=== PATIENT | female | born 1945 | race Caucasian/White ===

== ENCOUNTER → 2016-06-24 | Outpatient (CLI) | payer MEDICARE, BC ==
--- NOTE | 2016-06-24 15:05 | CR ---
EXAMINATION: Two-view chest (PA and Lateral views). HISTORY: Cough. FINDINGS: The trachea is midline. The cardiomediastinal silhouette is within normal limits. No pulmonary infil trates, effusions or pneumothorax. There is a right-sided portacatheter noted with tip in good posit ion. There is mild hyperinflation. Osseous structures appear unremarkable. IMPRESSION: No acute cardiopulmonary process.
== END | disposition home or self-care (01) ==
LOC: MW.CHFP 14:12
PROVIDERS: ATTEND Physician Assistant
DX: R05 Cough (principal); J32.0 Chronic maxillary sinusitis
CPT/HCPCS: 36415; 71020; 85025; G0463

== ENCOUNTER → 2016-07-02 | Outpatient (CLI) | payer MEDICARE, BC | LOC: MW.CHFP 08:00 | CPT/HCPCS: G0463 ==

== ENCOUNTER → 2016-07-20 | Outpatient (CLI) | payer MEDICARE, BC ==
[2016-07-20 09:37] LABS: CHLORIDE,CL 102 mmol/L (98-110); SODIUM,NA 139 mmol/L (136-146)
--- NOTE | 2016-07-20 09:46 | CR ---
EXAMINATION: Two-view chest (PA and Lateral views). HISTORY: Lobar pneumonia. FINDINGS: The trachea is midline. The cardiomediastinal silhouette is within normal limits. No pulmonary infil trates, effusions or pneumothorax. There is a right-sided portacatheter. Trace left basilar atelecta sis. Osseous structures appear unremarkable. IMPRESSION: No acute cardiopulmonary process.
== END ==
LOC: MW.CHFP 08:41
PROVIDERS: ATTEND Emergency Medicine
DX: J18.1 Lobar pneumonia, unspecified organism (principal); E87.6 Hypokalemia; E11.9 Type 2 diabetes mellitus without complications; B00.9 Herpesviral infection, unspecified; Z87.01 Personal history of pneumonia (recurrent)
CPT/HCPCS: 36415; 71020; 71020-26; 80048; 83036; G0463

== ENCOUNTER 2017-03-14 10:22 | Inpatient (IN) | payer MEDICARE, BC ==
[2017-03-14] MEDS ORDERED: Sodium Chloride 0.9% 1,000 ML IV ONE (10:41)
[2017-03-14] MEDS ORDERED: Ketorolac 30 MG/ML SDV IVPUSH ONE (10:43)
--- NOTE | 2017-03-14 11:00 | CR ---
EXAMINATION: Two-view chest (PA and Lateral views). HISTORY: Shortness of breath. FINDINGS: The trachea is midline. The cardiomediastinal silhouette is within normal limits. No pulmonary infilt rates, effusions or pneumothorax. Bibasilar atelectasis. Definite focal consolidation. No pleural eff usion. There is a right-sided portacatheter with tip in good position. Osseous structures appear unremarkable. IMPRESSION: Bibasilar atelectasis without an acute cardiopulmonary finding.
[2017-03-14] MEDS ORDERED: Albuterol 0.083% 2.5 MG/3 ML Neb Soln NEB ONE (12:06)
--- NOTE | 2017-03-14 12:42 | EDM.PDOC ---
ED HPI GENERAL MEDICAL PROBLEM - General Chief Complaint: Respiratory Problem Stated Complaint: SOB Time Seen by Provider: 03/14/17 12:37 Source of Information: Reports: Patient History Limitations: Reports: No Limitations - History of Present Illness INITIAL COMMENTS - FREE TEXT/NARRATIVE: History of present illness: [71-year-old female presents with complaints of shortness of breath. Patient indicates that she was diagnosed with a pneumonia was taking antibiotics but her symptoms are getting worse and she feels quite unwell at this time.] Review of systems: As per history of present illness and below otherwise all systems reviewed and negative. Past medical history: As per history of present illness and as reviewed below otherwise noncontributory. Surgical history: As per history of present illness and as reviewed below otherwise noncontributory. Social history: No reported history of drug or alcohol abuse. Family history: As per history of present illness and as reviewed below otherwise noncontributory. Physical exam: HEENT: Atraumatic, normocephalic, pupils reactive, negative for conjunctival pallor or scleral icterus, mucous membranes moist, throat clear, neck supple, nontender, trachea midline. Lungs: Dim throughout breathing primarily from the apices with a shallow nonproductive cough otherwise equal bilaterally, chest nontender. Heart: S1S2, regular, negative for clicks, rubs, or JVD. Abdomen: Soft, nondistended, nontender. Negative for masses or hepatosplenomegaly. Negative for costovertebral tenderness. Pelvis: Stable nontender. Genitourinary: Deferred. Rectal: Deferred. Extremities: Atraumatic, negative for cords or calf pain. Neurovascular unremarkable. Neuro: Awake, alert, oriented. Cranial nerves II through XII unremarkable. Cerebellum unremarkable. Motor and sensory unremarkable throughout. Exam nonfocal. Spoke to the hospitalist Dr. Sutton he will be down to the ED at the bedside to evaluate patient for inpatient admission Diagnostics: [CBC, CMP, amylase, lipase, chest x-ray] Therapeutics: [IV] Impression: [Pneumonia] Plan: [Admit] Definitive disposition and diagnosis as appropriate pending reevaluation and review of above. Left Middle Back Pain Score (Numeric/FACES): 7 - Related Data Allergies Allergy/AdvReac Type Severity Reaction Status Date / Time Sulfa (Sulfonamide Allergy Rash Verified 03/14/17 10:34 Antibiotics) Home Meds: Home Meds Anastrozole [Arimidex] 1 mg PO DAILY 03/14/17 [History] Budesonide/Formoterol Fumarate [Symbicort 160-4.5 Mcg Inhaler] 2 puff INH BID [History] Colesevelam HCl [Welchol] 1,250 mg PO BID 03/14/17 [History] Fluticasone Furoate [Flonase Sensimist] 1 spray NASBOTH DAILY 03/14/17 [History] Levofloxacin 750 mg PO DAILY 03/14/17 [History] Losartan/Hydrochlorothiazide [Losartan-HCTZ 100-25 MG] 1 tab PO DAILY 03/14/17 [ History] Metoprolol Succinate [Toprol XL] 100 mg PO DAILY 03/14/17 [History] amLODIPine [Norvasc] 2.5 mg PO DAILY 03/14/17 [History] metFORMIN [Glucophage] 500 mg PO DAILY 03/14/17 [History] valACYclovir [Valtrex] 1,000 mg PO ASDIRECTED 03/14/17 [History] Past Medical History Cardiovascular History: Reports: Hypertension Respiratory History: Reports: Other (See Below) Other Respiratory History: pneumonia Oncologic (Cancer) History: Reports: Breast - Infectious Disease History Infectious Disease History: Reports: Chicken Pox, Measles, Mumps - Past Surgical History Oncologic Surgical History: Reports: Mastectomy Social & Family History - Family History Family Medical History: Noncontributory - Tobacco Use Smoking Status *Q: Never Smoker - Recreational Drug Use Recreational Drug Use: No ED ROS GENERAL - Review of Systems Review Of Systems: See Below (History of present illness:) ED EXAM, GENERAL - Physical Exam Exam: See Below (History of present illness:) Course - Vital Signs Last Recorded V/S: Last Vital Signs Temp 36.2 C 03/14/17 10:31 Pulse 117 H 03/14/17 10:31 Resp 22 H 03/14/17 10:31 BP 143/75 H 03/14/17 10:31 Pulse Ox 94 L 03/14/17 10:31 - Orders/Labs/Meds Orders: Active Orders 24 hr Category Date Time Status RT Aerosol Therapy [RC] ASDIRECTED Care 03/14/17 12:06 Active Labs: Laboratory Tests 03/14/17 03/14/17 Range/Units 11:06 11:06 WBC 15.63 H (4.0-11.0) K/uL RBC 4.10 L (4.30-5.90) M/uL Hgb 12.2 (12.0-16.0) g/dL Hct 35.7 L (36.0-46.0) % MCV 87.1 (80.0-98.0) fL MCH 29.8 (27.0-32.0) pg MCHC 34.2 (31.0-37.0) g/dL RDW Std Deviation 42.4 (28.0-62.0) fl RDW Coeff of Johnathan 13 (11.0-15.0) % Plt Count 202 (150-400) K/uL MPV 10.90 (7.40-12.00) fL Neut % (Auto) 77.1 (48.0-80.0) % Lymph % (Auto) 11.0 L (16.0-40.0) % Grainger % (Auto) 11.5 (0.0-15.0) % Eos % (Auto) 0.3 (0.0-7.0) % Baso % (Auto) 0.1 (0.0-1.5) % Neut # (Auto) 12.1 H (1.4-5.7) K/uL Lymph # (Auto) 1.7 (0.6-2.4) K/uL Grainger # (Auto) 1.8 H (0.0-0.8) K/uL Eos # (Auto) 0.0 (0.0-0.7) K/uL Baso # (Auto) 0.0 (0.0-0.1) K/uL Nucleated RBC % 0.0 /100WBC Nucleated RBCs # 0 K/uL Sodium 133 L (136-146) mmol/L Potassium 3.4 L (3.5-5.1) mmol/L Chloride 95 L (98-110) mmol/L Carbon Dioxide 21 (21-31) mmol/L BUN 23 (6.0-23.0) mg/dL Creatinine 1.0 (0.6-1.5) mg/dL Est Cr Clr Drug Dosing 50.54 mL/min Estimated GFR (MDRD) 54.3 ml/min Glucose 147 H (60-110) mg/dL Calcium 9.8 (8.8-10.8) mg/dL Total Bilirubin 0.9 (0.1-1.5) mg/dL AST 21 (5-40) IU/L ALT 21 (8-54) IU/L Alkaline Phosphatase 75 (40-150) Total Protein 7.5 (6.0-8.0) g/dL Albumin 3.7 (3.4-4.8) g/dL Globulin 3.8 H (2.0-3.5) g/dL Albumin/Globulin Ratio 1.0 L (1.3-2.8) Amylase 25 (10-90) U/L Lipase 9 (7-80) U/L Meds: Medications Discontinued Medications Generic Name Dose Route Start Last Admin Trade Name Freq PRN Reason Stop Dose Admin Albuterol 2.5 mg 03/14/17 12:06 03/14/17 12:13 Proventil Neb Soln NEB 03/14/17 12:07 2.5 mg ONETIME ONE Administration Sodium Chloride 1,000 mls @ 999 mls/hr 03/14/17 10:41 03/14/17 11:10 Normal Saline IV 03/14/17 11:41 999 mls/hr STAT ONE Administration Ketorolac Tromethamine 30 mg 03/14/17 10:43 03/14/17 11:10 Toradol IVPUSH 03/14/17 10:44 30 mg ONETIME ONE Administration Departure - Departure Time of Disposition: 12:44 Disposition: Admitted As Inpatient 64 Condition: Good Clinical Impression: Pneumonia - Discharge Information Referrals: Terrance Younger MD [Primary Care Provider] - Forms: ED Department Discharge - My Orders Last 24 Hours: My Active Orders 03/14/17 12:06 RT Aerosol Therapy [RC] ASDIRECTED - Assessment/Plan Last 24 Hours: My Active Orders 03/14/17 12:06 RT Aerosol Therapy [RC] ASDIRECTED
[2017-03-14] MEDS ORDERED: Albuterol/Ipratropium 3.0-0.5 MG/3 ML Neb Soln NEB PRN (13:31)
[2017-03-14] MEDS ORDERED: Acetaminophen 325 MG Tab PO PRN (13:31)
[2017-03-14] MEDS ORDERED: Ondansetron 4 MG Tab.DIS PO PRN (13:31)
[2017-03-14] MEDS ORDERED: traMADol 50 MG Tab PO PRN (13:40)
--- NOTE | 2017-03-14 13:48 | PCM.HP ---
H&P History of Present Illness - General Date of Service: 03/14/17 Admit Problem/Dx: Admission Diagnosis/Problem Admission Diagnosis/Problem Pneumonia Source of Information: Patient History Limitations: Reports: No Limitations - History of Present Illness Initial Comments - Free Text/Narative: 71-year-old female that is being admitted with worsening dyspnea despite outpatient antibiotics. Patient was seen in the clinic on Tuesday and had a chest x-ray done which showed a mild right lower lobe infiltrate and atelectasis. Patient was placed on Levaquin and Symbicort. Patient does have a history of tobacco use but don't diagnosis of COPD. The Levaquin was used to treat both the pneumonia and a possible COPD exacerbation. Patient notes she has been compliant with the medication but has noted worsening dyspnea and shortness of breath since being seen on Tuesday. She presented to the emergency room secondary to these worsening symptoms. She also notes pain in her mid back with deep inspiration. This is a new symptom. Patient does not use inhalers at home. She has used albuterol in the past but notes that it makes her "jittery". Patient denies any chest pain, sinus congestion, sore throat, abdominal pain, nausea, vomiting, constipation, diarrhea, peripheral edema, fever. She does have a chronic cough and she states that this is not any worse than it normally is. Patient does not have a cardiac history. ER course: White blood cell count is elevated at 15.6. Her white blood cell count on Tuesday was 13,000. She was given a DuoNeb treatment and a shot of Toradol for her mid back pain. CMP is unremarkable. Chest x-ray shows a very mild bilateral basilar infiltrate. Oxygen saturation was 96% on 2 L nasal cannula. Left Middle Back Pain Score (Numeric/FACES): 7 - Related Data Allergies/Adverse Reactions: Allergies Allergy/AdvReac Type Severity Reaction Status Date / Time Sulfa (Sulfonamide Allergy Rash Verified 03/14/17 10:34 Antibiotics) Home Medications: Home Meds Anastrozole [Arimidex] 1 mg PO DAILY 03/14/17 [History] Budesonide/Formoterol Fumarate [Symbicort 160-4.5 Mcg Inhaler] 2 puff INH BID [History] Colesevelam HCl [Welchol] 1,250 mg PO BID 03/14/17 [History] Fluticasone Furoate [Flonase Sensimist] 1 spray NASBOTH DAILY 03/14/17 [History] Levofloxacin 750 mg PO DAILY 03/14/17 [History] Losartan/Hydrochlorothiazide [Losartan-HCTZ 100-25 MG] 1 tab PO DAILY 03/14/17 [ History] Metoprolol Succinate [Toprol XL] 100 mg PO DAILY 03/14/17 [History] amLODIPine [Norvasc] 2.5 mg PO DAILY 03/14/17 [History] metFORMIN [Glucophage] 500 mg PO DAILY 03/14/17 [History] valACYclovir [Valtrex] 1,000 mg PO ASDIRECTED 03/14/17 [History] Past Medical History Cardiovascular History: Reports: Hypertension Respiratory History: Reports: Other (See Below) Other Respiratory History: pneumonia Oncologic (Cancer) History: Reports: Breast - Infectious Disease History Infectious Disease History: Reports: Chicken Pox, Measles, Mumps - Past Surgical History Oncologic Surgical History: Reports: Mastectomy Social & Family History - Family History Family Medical History: Noncontributory - Tobacco Use Smoking Status *Q: Never Smoker - Recreational Drug Use Recreational Drug Use: No H&P Review of Systems - Review of Systems: Review Of Systems: See Below General: Reports: Fatigue HEENT: Reports: No Symptoms Pulmonary: Reports: Shortness of Breath, Cough Cardiovascular: Reports: No Symptoms Gastrointestinal: Reports: No Symptoms Genitourinary: Reports: No Symptoms Musculoskeletal: Reports: Other (Mid back pain with deep inspiration.) Skin: Reports: No Symptoms Psychiatric: Reports: No Symptoms Neurological: Reports: No Symptoms Hematologic/Lymphatic: Reports: No Symptoms Immunologic: Reports: No Symptoms Exam - Exam Exam: See Below - Vital Signs Vital Signs: Last Vital Signs Temp 97.2 F 03/14/17 10:31 Pulse 99 03/14/17 12:45 Resp 20 03/14/17 12:45 BP 139/60 03/14/17 12:45 Pulse Ox 92 L 03/14/17 12:45 Weight: 198 lb 6.656 oz - Exam Quality Assessment: Supplemental Oxygen (2 L nasal cannula), DVT Prophylaxis ( SCDs, Lovenox) General: Alert, Oriented, Cooperative, Mild Distress HEENT: Conjunctiva Clear, Hearing Intact, Mucosa Moist & [place], Nares Patent, Normal Nasal Septum Neck: Supple, Trachea Midline, 2 Lungs: Clear to Auscultation, Normal Respiratory Effort, Other (Patient has diminished breath sounds diffusely and bilaterally in all lung lemno. No coarse breath sounds appreciated.) Cardiovascular: Regular Rhythm, Tachycardia (Patient was tachycardic at 117 bpm but her rate has now improved to within normal limits.) GI/Abdominal Exam: Normal Bowel Sounds, Soft, Non-Tender, No Organomegaly, No Distention, No Abnormal Bruit, No Mass Back Exam: Normal Inspection, Full Range of Motion. No: CVA Tenderness (L), CVA Tenderness (R) Extremities: Normal Inspection, Normal Range of Motion, Non-Tender, No Pedal Edema, Normal Capillary Refill Peripheral Pulses: 2+: Radial (L), Radial (R), Posterior Tibial (L), Posterior Tibial (R) Skin: Warm, Dry, Intact Neuro Extensive - Mental Status: Alert, Oriented x3, Normal Mood/Affect, Normal Cognition Psychiatric: Alert, Normal Affect, Normal Mood - Patient Data Result Diagrams: 03/14/17 11:06 03/14/17 11:06 *Q Meaningful Use (ADM) - VTE *Q VTE Criteria *Q: - Stroke *Q Stroke Criteria *Q: - AMI *Q AMI Criteria *Q: - Problem List (1) Diabetes SNOMED Code(s): 22251649 ICD Code: E11.9 - TYPE 2 DIABETES MELLITUS WITHOUT COMPLICATIONS Status: Acute Current Visit: Yes (2) COPD (chronic obstructive pulmonary disease) SNOMED Code(s): 62090203 ICD Code: J44.9 - CHRONIC OBSTRUCTIVE PULMONARY DISEASE, UNSPECIFIED Status : Acute Current Visit: Yes (3) Pneumonia SNOMED Code(s): 192490133 ICD Code: J18.9 - PNEUMONIA, UNSPECIFIED ORGANISM Status: Acute Current Visit: Yes Problem List Initiated/Reviewed/Updated: Yes Orders Last 24hrs: Active Orders 24 hr Category Date Time Status Antiembolic Devices [RC] PER UNIT ROUTINE Care 03/14/17 13:35 Ordered Blood Glucose Check, Bedside [RC] TIDMEALS Care 03/14/17 13:39 Ordered Height and Weight [RC] DAILY Care 03/14/17 13:31 Ordered Intake and Output [RC] QSHIFT Care 03/14/17 13:32 Ordered Notify Provider Vital Signs [RC] ASDIRECTED Care 03/14/17 13:32 Ordered Oxygen Therapy [RC] PRN Care 03/14/17 13:32 Ordered Pulse Oximetry [RC] PRN Care 03/14/17 13:32 Ordered RT Aerosol Therapy [RC] ASDIRECTED Care 03/14/17 13:35 Ordered Up With Assistance [RC] ASDIRECTED Care 03/14/17 13:31 Ordered VTE/DVT Education [RC] PER UNIT ROUTINE Care 03/14/17 13:32 Ordered Vital Signs [RC] Q4H Care 03/14/17 13:32 Ordered ADA Diabetic [[place] [employer] Diet] [DIET Diet 03/14/17 Dinner Ordered ] B-TYPE NATRIURETIC PEPTIDE,BNP [CHEM] Routine Lab 03/14/17 13:36 Ordered BASIC METABOLIC PANEL,BMP [CHEM] AM Lab 03/15/17 05:11 Ordered BASIC METABOLIC PANEL,BMP [CHEM] AM Lab 03/16/17 05:11 Ordered BASIC METABOLIC PANEL,BMP [CHEM] AM Lab 03/17/17 05:11 Ordered CBC WITH AUTO DIFF [HEME] AM Lab 03/15/17 05:11 Ordered CBC WITH AUTO DIFF [HEME] AM Lab 03/16/17 05:11 Ordered CBC WITH AUTO DIFF [HEME] AM Lab 03/17/17 05:11 Ordered CULTURE BLOOD [BC] Stat Lab 03/14/17 13:35 Ordered CULTURE BLOOD [BC] Stat Lab 03/14/17 13:35 Ordered CULTURE SPUTUM + SMEAR [RM] Routine Lab 03/14/17 13:37 Uncollected GLYCOSYLATED HEMOGLOBIN,HGBA1C [CHEM] Routine Lab 03/14/17 13:39 Ordered Acetaminophen [Tylenol] Med 03/14/17 13:31 Ordered 650 mg PO Q4H PRN Albuterol/Ipratropium [DuoNeb 3.0-0.5 MG/3 ML] Med 03/14/17 13:31 Ordered 3 ml NEB Q4HRRT PRN Enoxaparin [Lovenox] Med 03/14/17 13:45 Ordered 40 mg SUBCUT DAILY Insulin Regular, Human [NovoLIN R] Med 03/14/17 17:00 Ordered See Protocol SUBCUT QIDACANDBED Levofloxacin/Dextrose 5%-Water [Levaquin in D5W 750 MG/ Med 03/14/17 13:45 Ordered 150 ML] 750 mg Premix Bag 1 bag IV Q24H Ondansetron [Zofran ODT] Med 03/14/17 13:31 Ordered 4 mg PO Q4H PRN methylPREDNISolone Sod Succ [Solu-MEDROL] Med 03/14/17 13:45 Ordered 125 mg IVPUSH Q6H traMADol [Ultram] Med 03/14/17 13:40 Ordered 50 mg PO Q8H PRN Blood Culture x2 Reflex Set [OM.PC] Stat Oth 03/14/17 13:31 Ordered Sequential Compression Device [OM.PC] Per Unit Routine Oth 03/14/17 13:33 Ordered Resuscitation Status Routine Resus Stat 03/14/17 13:31 Ordered Medication Orders Acetaminophen (Tylenol) 650 mg PO Q4H PRN PRN Reason: Pain (Mild 1-3)/fever Albuterol/Ipratropium (Duoneb 3.0-0.5 Mg/3 Ml) 3 ml NEB Q4HRRT PRN PRN Reason: Shortness Of Breath/wheezing Enoxaparin Sodium (Lovenox) 40 mg SUBCUT DAILY ALEXY Levofloxacin/Dextrose 750 mg/ (Premix) 150 mls @ 100 mls/hr IV Q24H ALEXY Insulin Human Regular (Novolin R) 0 unit SUBCUT QIDACANDBED ALEXY PRN Reason: Protocol Methylprednisolone Sodium Succinate (Solu-Medrol) 125 mg IVPUSH Q6H ALEXY Ondansetron HCl (Zofran Odt) 4 mg PO Q4H PRN PRN Reason: nausea, able to take PO Tramadol HCl (Ultram) 50 mg PO Q8H PRN PRN Reason: Pain Assessment/Plan Comment:: 71-year-old female that is being admitted with pneumonia and possible COPD exacerbation. #1. Pneumonia with possible COPD exacerbation: -Patient has been on by mouth Levaquin since Tuesday but has an increasing white count as evidenced on CBC today. Patient will be placed on IV Levaquin 750 mg daily. Daily CBC to trend white count. -Chest x-ray shows mild by basilar infiltrates. After looking at the x-ray, I believe that the patient may also have underlying COPD and that this may be an exacerbation. -Patient will also be placed on Solu-Medrol 125 mg every 6 hours. -DuoNeb treatment as needed. -BNP is pending. If elevated will get an echocardiogram. Patient has no cardiac history. -For patient's mid back pain with deep inspiration, Tylenol is available and if this does not work she can get tramadol 50 mg every 8 hours when necessary. #2. Type 2 diabetes: -NovoLog sliding scale. Accu-Cheks 3 times a day. -Diabetic diet. #3. Hypertension: -Home antihypertensives will be restarted. DVT prophylaxis: SCDs, Lovenox. Disposition: 2 to 4 days pending improvement.
[2017-03-14] MEDS ORDERED: Piperacillin/Tazobactam 3.375 GM in Sodium Chloride 0.9% 50 ML IV SCH (14:00)
[2017-03-14] MEDS: Levofloxacin/Dextrose 5%-Water 750 MG in Premix Bag 1 BAG IV SCH (15:03)
[2017-03-14] MEDS: methylPREDNISolone Sodium Succinate 125 MG/2 ML SDV IVPUSH SCH ×2 (15:07→18:45)
[2017-03-14] MEDS: Enoxaparin 40 MG/0.4 ML Syringe SUBCUT SCH (15:08)
[2017-03-14] MEDS: Insulin Regular, Human 100 Units/ML 10 ML Vial SUBCUT SCH ×2 (16:54→21:10)
[2017-03-14] MEDS: Piperacillin/Tazobactam 3.375 GM in Sodium Chloride 0.9% 50 ML IV SCH (21:05)
[2017-03-14] MEDS ORDERED: Temazepam 15 MG Cap PO PRN (22:44)
[2017-03-15] MEDS: methylPREDNISolone Sodium Succinate 125 MG/2 ML SDV IVPUSH SCH ×3 (01:29→17:35)
[2017-03-15] MEDS: Piperacillin/Tazobactam 3.375 GM in Sodium Chloride 0.9% 50 ML IV SCH ×4 (01:29→19:56)
[2017-03-15 06:07] LABS: CHLORIDE,CL 100 mmol/L (98-110); SODIUM,NA 136 mmol/L (136-146)
[2017-03-15] MEDS: Enoxaparin 40 MG/0.4 ML Syringe SUBCUT SCH (08:27)
[2017-03-15] MEDS: Insulin Regular, Human 100 Units/ML 10 ML Vial SUBCUT SCH ×4 (09:26→21:06)
--- NOTE | 2017-03-15 09:29 | PCM.PN ---
- General Info Date of Service: 03/15/17 Admission Dx/Problem (Free Text): Admission Diagnosis/Problem Admission Diagnosis/Problem Pneumonia/COPD exacerbation Subjective Update: Doing better this morning, back pain is much better, almost gone. Still has dry non-productive cough. No chest pain. SOB has improved. No other complaints. Functional Status: Reports: Pain Controlled, Tolerating Diet, Ambulating, Urinating - Review of Systems General: Reports: No Symptoms. Denies: Fever HEENT: Reports: No Symptoms. Denies: Headaches, Sore Throat Pulmonary: Reports: Shortness of Breath (improving), Cough. Denies: Pleuritic Chest Pain, Sputum, Hemoptysis Cardiovascular: Reports: No Symptoms. Denies: Chest Pain, Palpitations, Edema Gastrointestinal: Reports: No Symptoms. Denies: Abdominal Pain, Nausea, Vomiting Genitourinary: Reports: No Symptoms. Denies: Dysuria, Frequency, Burning Neurological: Reports: No Symptoms - Patient Data Vitals - Most Recent: Last Vital Signs Temp 97.8 F 03/15/17 07:22 Pulse 81 03/15/17 07:22 Resp 16 03/15/17 07:22 BP 134/86 03/15/17 07:22 Pulse Ox 92 L 03/15/17 07:22 Weight - Most Recent: 90 kg I&O - Last 24 Hours: Intake & Output 03/14/17 03/15/17 03/15/17 22:59 06:59 14:59 Intake Total 950 250 Output Total 0 1350 Balance 950 -1100 Lab Results Last 24 Hours: Laboratory Results - last 24 hr 03/14/17 03/14/17 03/15/17 Range/Units 16:22 20:46 04:55 WBC 10.34 (4.0-11.0) K/uL RBC 4.05 L (4.30-5.90) M/uL Hgb 11.9 L (12.0-16.0) g/dL Hct 34.5 L (36.0-46.0) % MCV 85.2 (80.0-98.0) fL MCH 29.4 (27.0-32.0) pg MCHC 34.5 (31.0-37.0) g/dL RDW Std Deviation 39.3 (28.0-62.0) fl RDW Coeff of Johnathan 13 (11.0-15.0) % Plt Count 187 (150-400) K/uL MPV 11.20 (7.40-12.00) fL Neut % (Auto) 90.4 H (48.0-80.0) % Lymph % (Auto) 7.3 L (16.0-40.0) % [place] % (Auto) 2.2 (0.0-15.0) % Eos % (Auto) 0.0 (0.0-7.0) % Baso % (Auto) 0.1 (0.0-1.5) % Neut # (Auto) 9.4 H (1.4-5.7) K/uL Lymph # (Auto) 0.8 (0.6-2.4) K/uL [place] # (Auto) 0.2 (0.0-0.8) K/uL Eos # (Auto) 0.0 (0.0-0.7) K/uL Baso # (Auto) 0.0 (0.0-0.1) K/uL Nucleated RBC % 0.0 /100WBC Nucleated RBCs # 0 K/uL Sodium (136-146) mmol/L Potassium (3.5-5.1) mmol/L Chloride (98-110) mmol/L Carbon Dioxide (21-31) mmol/L BUN (6.0-23.0) mg/dL Creatinine (0.6-1.5) mg/dL Est Cr Clr Drug Dosing mL/min Estimated GFR (MDRD) ml/min Glucose (60-110) mg/dL POC Glucose 149 H 184 H (60-110) mg/dL Calcium (8.8-10.8) mg/dL 03/15/17 03/15/17 03/15/17 Range/Units 04:55 05:57 09:05 WBC (4.0-11.0) K/uL RBC (4.30-5.90) M/uL Hgb (12.0-16.0) g/dL Hct (36.0-46.0) % MCV (80.0-98.0) fL MCH (27.0-32.0) pg MCHC (31.0-37.0) g/dL RDW Std Deviation (28.0-62.0) fl RDW Coeff of Johnathan (11.0-15.0) % Plt Count (150-400) K/uL MPV (7.40-12.00) fL Neut % (Auto) (48.0-80.0) % Lymph % (Auto) (16.0-40.0) % [place] % (Auto) (0.0-15.0) % Eos % (Auto) (0.0-7.0) % Baso % (Auto) (0.0-1.5) % Neut # (Auto) (1.4-5.7) K/uL Lymph # (Auto) (0.6-2.4) K/uL [place] # (Auto) (0.0-0.8) K/uL Eos # (Auto) (0.0-0.7) K/uL Baso # (Auto) (0.0-0.1) K/uL Nucleated RBC % /100WBC Nucleated RBCs # K/uL Sodium 136 (136-146) mmol/L Potassium 3.2 L (3.5-5.1) mmol/L Chloride 100 (98-110) mmol/L Carbon Dioxide 22 (21-31) mmol/L BUN 21 (6.0-23.0) mg/dL Creatinine 0.8 (0.6-1.5) mg/dL Est Cr Clr Drug Dosing 63.18 mL/min Estimated GFR (MDRD) > 60.0 ml/min Glucose 189 H (60-110) mg/dL POC Glucose 185 H 235 H (60-110) mg/dL Calcium 9.5 (8.8-10.8) mg/dL Med Orders - Current: Current Medications Acetaminophen (Tylenol) 650 mg PO Q4H PRN PRN Reason: Pain (Mild 1-3)/fever Albuterol/Ipratropium (Duoneb 3.0-0.5 Mg/3 Ml) 3 ml NEB Q4HRRT PRN PRN Reason: Shortness Of Breath/wheezing Enoxaparin Sodium (Lovenox) 40 mg SUBCUT DAILY [facility] Last Admin: 03/15/17 08:27 Dose: 40 mg Levofloxacin/Dextrose 750 mg/ (Premix) 150 mls @ 100 mls/hr IV Q24H [facility] Last Admin: 03/14/17 15:03 Dose: 100 mls/hr Piperacillin Sod/Tazobactam (Sod 3.375 gm/ Sodium Chloride) 50 mls @ 100 mls/ hr IV Q6H [facility] Last Admin: 03/15/17 08:40 Dose: 100 mls/hr Insulin Human Regular (Novolin R) 0 unit SUBCUT QIDACANDBED [facility] PRN Reason: Protocol Last Admin: 03/14/17 21:10 Dose: 1 unit Methylprednisolone Sodium Succinate (Solu-Medrol) 125 mg IVPUSH Q6H [facility] Last Admin: 03/15/17 08:27 Dose: 125 mg Ondansetron HCl (Zofran Odt) 4 mg PO Q4H PRN PRN Reason: nausea, able to take PO Temazepam (Restoril) 15 mg PO BEDTIME PRN PRN Reason: Insomnia Tramadol HCl (Ultram) 50 mg PO Q8H PRN PRN Reason: Pain Discontinued Medications Albuterol (Proventil Neb Soln) 2.5 mg NEB ONETIME ONE Stop: 03/14/17 12:07 Last Admin: 03/14/17 12:13 Dose: 2.5 mg Sodium Chloride (Normal Saline) 1,000 mls @ 999 mls/hr IV STAT ONE Stop: 03/14/17 11:41 Last Admin: 03/14/17 11:10 Dose: 999 mls/hr Piperacillin Sod/Tazobactam (Sod 3.375 gm/ Sodium Chloride) 50 mls @ 100 mls/ hr IV Q8H [facility] Last Admin: 03/14/17 16:48 Dose: 100 mls/hr Ketorolac Tromethamine (Toradol) 30 mg IVPUSH ONETIME ONE Stop: 03/14/17 10:44 Last Admin: 03/14/17 11:10 Dose: 30 mg - Exam Quality Assessment: Supplemental Oxygen, DVT Prophylaxis General: Alert, Oriented, Cooperative Neck: Supple Lungs: Rhonchi (Bilateral bases). No: Wheezing Cardiovascular: Regular Rate, Regular Rhythm, No Murmurs GI/Abdominal Exam: Normal Bowel Sounds, Soft, Non-Tender Extremities: Normal Inspection, Normal Range of Motion, Non-Tender, No Pedal Edema, Normal Capillary Refill Neurological: No New Focal Deficit Psy/Mental Status: Alert, Normal Affect, Normal Mood - Problem List & Annotations (1) COPD (chronic obstructive pulmonary disease) SNOMED Code(s): 25529290 Code(s): J44.9 - CHRONIC OBSTRUCTIVE PULMONARY DISEASE, UNSPECIFIED Status : Acute Current Visit: Yes Qualifiers: COPD type: COPD with acute exacerbation Qualified Code(s): J44.1 - Chronic obstructive pulmonary disease with (acute) exacerbation (2) Diabetes SNOMED Code(s): 81217647 Code(s): E11.9 - TYPE 2 DIABETES MELLITUS WITHOUT COMPLICATIONS Status: Chronic Current Visit: Yes Qualifiers: Diabetes mellitus type: type 2 Diabetes mellitus complication status: without complication Diabetes mellitus petroleum terminal plant operator insulin use: without petroleum terminal plant operator use Qualified Code(s): E11.9 - Type 2 diabetes mellitus without complications (3) Pneumonia SNOMED Code(s): 329200944 Code(s): J18.9 - PNEUMONIA, UNSPECIFIED ORGANISM Status: Acute Current Visit: Yes Qualifiers: Pneumonia type: due to unspecified organism Laterality: bilateral Lung location: lower lobe of lung Qualified Code(s): J18.9 - Pneumonia, unspecified organism - Problem List Review Problem List Initiated/Reviewed/Updated: Yes - Plan Plan:: 71-year-old female that is being admitted with pneumonia and possible COPD exacerbation. #1. CAP with possible COPD exacerbation: Continue IV Levaquin 750 mg daily and Zosyn. Leukocytosis ipmroved today, 10,000. Symptoms improving as well. Will decrease Solumedrol to Q8hrs and monitor. Duonebs PRN. BNP normal. Would recommended PFT as outpatient to evaluate respiratory status, once acute illness has passed. #2. Type 2 diabetes: Continue SSI and check BS, may increase with Solumedrol. Will monitor #3. Hypertension: Continue home medications DVT prophylaxis: SCDs, Lovenox. Disposition: 1-2 days.
[2017-03-15] MEDS: Levofloxacin/Dextrose 5%-Water 750 MG in Premix Bag 1 BAG IV SCH (12:44)
[2017-03-15] MEDS ORDERED: Potassium Chloride 20 MEQ Tab.ER PO ONE (13:33)
[2017-03-15] MEDS ORDERED: Lidocaine 2% 5 ML SDV INJECT ONE (16:22)
--- NOTE | 2017-03-15 17:49 | PCM.SN ---
- Free Text/Narrative Note: called for IV attempt. pt aware of need for IV, discussed procedure. unable to utilize Left arm due to lymphedema. 2 attempts in ac area with ultrasound. unable to cannulate. discussed trying to utilize pt port which has had heparin instilled for approximately 5 days.
[2017-03-15] MEDS: amLODIPine 2.5 MG Tab PO SCH (21:04)
[2017-03-15] MEDS: Hydrochlorothiazide/Losartan 12.5-50 mg Tab PO SCH (21:04)
[2017-03-15] MEDS: Metoprolol Succinate 100 MG Tab.ER PO SCH (21:05)
[2017-03-16] MEDS: methylPREDNISolone Sodium Succinate 125 MG/2 ML SDV IVPUSH SCH ×3 (01:06→15:41)
[2017-03-16] MEDS: Piperacillin/Tazobactam 3.375 GM in Sodium Chloride 0.9% 50 ML IV SCH ×4 (01:06→20:12)
[2017-03-16 06:24] LABS: CHLORIDE,CL 102 mmol/L (98-110); SODIUM,NA 139 mmol/L (136-146)
[2017-03-16] MEDS: Insulin Regular, Human 100 Units/ML 10 ML Vial SUBCUT SCH ×4 (07:20→21:34)
[2017-03-16] MEDS ORDERED: Sodium Chloride 0.9% 1,000 ML IV ONE (08:57)
[2017-03-16] MEDS: amLODIPine 2.5 MG Tab PO SCH (09:04)
[2017-03-16] MEDS: Hydrochlorothiazide/Losartan 12.5-50 mg Tab PO SCH (09:04)
[2017-03-16] MEDS: Metoprolol Succinate 100 MG Tab.ER PO SCH (09:05)
[2017-03-16] MEDS: Enoxaparin 40 MG/0.4 ML Syringe SUBCUT SCH (09:10)
[2017-03-16] MEDS: Anastrozole 1 MG Tab PO SCH (09:21)
[2017-03-16] MEDS: Benzonatate 100 MG Cap PO SCH ×3 (09:21→21:37)
[2017-03-16] MEDS: Colesevelam 625 MG Tab PO SCH ×2 (09:21→21:37)
[2017-03-16] MEDS: Fluticasone Propionate Nasal Spray 16 GM Bottle NASBOTH SCH (09:22)
--- NOTE | 2017-03-16 11:02 | PCM.PN ---
- General Info Date of Service: 03/16/17 Admission Dx/Problem (Free Text): Admission Diagnosis/Problem Admission Diagnosis/Problem Pneumonia/COPD exacerbation Subjective Update: Patient reports that her breathing is much improved since admission. She still on supplemental oxygen but reports decreased work of breathing. She does report a headache and postnasal drainage. He is currently on Levaquin and Zosyn for pneumonia and COPD exacerbation. She is tolerating oral intake, voiding appropriately and able to ambulate without assistance. Functional Status: Reports: Tolerating Diet, Ambulating, Urinating - Review of Systems General: Reports: No Symptoms HEENT: Reports: Headaches, Post Nasal Drip Pulmonary: Reports: Shortness of Breath (Improving.) Cardiovascular: Reports: No Symptoms Gastrointestinal: Reports: No Symptoms Genitourinary: Reports: No Symptoms Musculoskeletal: Reports: No Symptoms Skin: Reports: No Symptoms Neurological: Reports: No Symptoms Psychiatric: Reports: No Symptoms - Patient Data Vitals - Most Recent: Last Vital Signs Temp 97.9 F 03/16/17 08:00 Pulse 82 03/16/17 09:05 Resp 18 03/16/17 08:00 BP 136/56 L 03/16/17 09:05 Pulse Ox 96 03/16/17 08:00 Weight - Most Recent: 196 lb 10.437 oz I&O - Last 24 Hours: Intake & Output 03/15/17 03/16/17 03/16/17 22:59 06:59 14:59 Intake Total 5088 051 5645 Output Total 300 750 Balance 750 -550 1050 Lab Results Last 24 Hours: Laboratory Results - last 24 hr 03/15/17 03/15/17 03/15/17 Range/Units 11:04 17:27 20:40 WBC (4.0-11.0) K/uL RBC (4.30-5.90) M/uL Hgb (12.0-16.0) g/dL Hct (36.0-46.0) % MCV (80.0-98.0) fL MCH (27.0-32.0) pg MCHC (31.0-37.0) g/dL RDW Std Deviation (28.0-62.0) fl RDW Coeff of Johnathan (11.0-15.0) % Plt Count (150-400) K/uL MPV (7.40-12.00) fL Neut % (Auto) (48.0-80.0) % Lymph % (Auto) (16.0-40.0) % [place] % (Auto) (0.0-15.0) % Eos % (Auto) (0.0-7.0) % Baso % (Auto) (0.0-1.5) % Neut # (Auto) (1.4-5.7) K/uL Lymph # (Auto) (0.6-2.4) K/uL [place] # (Auto) (0.0-0.8) K/uL Eos # (Auto) (0.0-0.7) K/uL Baso # (Auto) (0.0-0.1) K/uL Nucleated RBC % /100WBC Nucleated RBCs # K/uL Sodium (136-146) mmol/L Potassium (3.5-5.1) mmol/L Chloride (98-110) mmol/L Carbon Dioxide (21-31) mmol/L BUN (6.0-23.0) mg/dL Creatinine (0.6-1.5) mg/dL Est Cr Clr Drug Dosing mL/min Estimated GFR (MDRD) ml/min Glucose (60-110) mg/dL POC Glucose 231 H 203 H 229 H (60-110) mg/dL Calcium (8.8-10.8) mg/dL Magnesium (1.5-2.3) mEq/L 03/16/17 03/16/17 03/16/17 Range/Units 05:25 05:25 05:25 WBC 15.23 H (4.0-11.0) K/uL RBC 3.98 L (4.30-5.90) M/uL Hgb 11.7 L (12.0-16.0) g/dL Hct 34.5 L (36.0-46.0) % MCV 86.7 (80.0-98.0) fL MCH 29.4 (27.0-32.0) pg MCHC 33.9 (31.0-37.0) g/dL RDW Std Deviation 41.3 (28.0-62.0) fl RDW Coeff of Johnathan 13 (11.0-15.0) % Plt Count 241 (150-400) K/uL MPV 10.90 (7.40-12.00) fL Neut % (Auto) 91.3 H (48.0-80.0) % Lymph % (Auto) 4.9 L (16.0-40.0) % [place] % (Auto) 3.7 (0.0-15.0) % Eos % (Auto) 0.0 (0.0-7.0) % Baso % (Auto) 0.1 (0.0-1.5) % Neut # (Auto) 13.9 H (1.4-5.7) K/uL Lymph # (Auto) 0.7 (0.6-2.4) K/uL [place] # (Auto) 0.6 (0.0-0.8) K/uL Eos # (Auto) 0.0 (0.0-0.7) K/uL Baso # (Auto) 0.0 (0.0-0.1) K/uL Nucleated RBC % 0.0 /100WBC Nucleated RBCs # 0 K/uL Sodium 139 (136-146) mmol/L Potassium 4.0 (3.5-5.1) mmol/L Chloride 102 (98-110) mmol/L Carbon Dioxide 24 (21-31) mmol/L BUN 27 H (6.0-23.0) mg/dL Creatinine 0.8 (0.6-1.5) mg/dL Est Cr Clr Drug Dosing 63.18 mL/min Estimated GFR (MDRD) > 60.0 ml/min Glucose 218 H (60-110) mg/dL POC Glucose (60-110) mg/dL Calcium 9.3 (8.8-10.8) mg/dL Magnesium 1.7 (1.5-2.3) mEq/L 03/16/17 Range/Units 07:09 WBC (4.0-11.0) K/uL RBC (4.30-5.90) M/uL Hgb (12.0-16.0) g/dL Hct (36.0-46.0) % MCV (80.0-98.0) fL MCH (27.0-32.0) pg MCHC (31.0-37.0) g/dL RDW Std Deviation (28.0-62.0) fl RDW Coeff of Johnathan (11.0-15.0) % Plt Count (150-400) K/uL MPV (7.40-12.00) fL Neut % (Auto) (48.0-80.0) % Lymph % (Auto) (16.0-40.0) % [place] % (Auto) (0.0-15.0) % Eos % (Auto) (0.0-7.0) % Baso % (Auto) (0.0-1.5) % Neut # (Auto) (1.4-5.7) K/uL Lymph # (Auto) (0.6-2.4) K/uL [place] # (Auto) (0.0-0.8) K/uL Eos # (Auto) (0.0-0.7) K/uL Baso # (Auto) (0.0-0.1) K/uL Nucleated RBC % /100WBC Nucleated RBCs # K/uL Sodium (136-146) mmol/L Potassium (3.5-5.1) mmol/L Chloride (98-110) mmol/L Carbon Dioxide (21-31) mmol/L BUN (6.0-23.0) mg/dL Creatinine (0.6-1.5) mg/dL Est Cr Clr Drug Dosing mL/min Estimated GFR (MDRD) ml/min Glucose (60-110) mg/dL POC Glucose 212 H (60-110) mg/dL Calcium (8.8-10.8) mg/dL Magnesium (1.5-2.3) mEq/L Michael Results Last 24 Hours: Microbiology 03/14/17 14:35 Aerobic Blood Culture - Preliminary Blood - Venous - Lab Draw NO GROWTH AFTER 1 DAY Anaerobic Blood Culture - Preliminary NO GROWTH AFTER 1 DAY 03/14/17 14:25 Aerobic Blood Culture - Preliminary Blood - Venous NO GROWTH AFTER 1 DAY Anaerobic Blood Culture - Preliminary NO GROWTH AFTER 1 DAY Med Orders - Current: Current Medications Acetaminophen (Tylenol) 650 mg PO Q4H PRN PRN Reason: Pain (Mild 1-3)/fever Last Admin: 03/16/17 09:21 Dose: 650 mg Albuterol/Ipratropium (Duoneb 3.0-0.5 Mg/3 Ml) 3 ml NEB Q4HRRT PRN PRN Reason: Shortness Of Breath/wheezing Amlodipine Besylate (Norvasc) 2.5 mg PO DAILY [facility] Last Admin: 03/16/17 09:04 Dose: 2.5 mg Anastrozole (Arimidex) 1 mg PO DAILY [facility] Last Admin: 03/16/17 09:21 Dose: 1 mg Benzonatate (Tessalon Perles) 200 mg PO TID [facility] Last Admin: 03/16/17 09:21 Dose: 200 mg Colesevelam HCl (Welchol) 1,250 mg PO BID [facility] Last Admin: 03/16/17 09:21 Dose: 1,250 mg Enoxaparin Sodium (Lovenox) 40 mg SUBCUT DAILY [facility] Last Admin: 03/16/17 09:10 Dose: 40 mg Fluticasone Propionate (Flonase) 1 gm NASBOTH DAILY [facility] Last Admin: 03/16/17 09:22 Dose: 1 spray HCTZ/Losartan Potassium (Hyzaar 50-12.5 Mg) 2 tab PO DAILY [facility] Last Admin: 03/16/17 09:04 Dose: 2 tab Levofloxacin/Dextrose 750 mg/ (Premix) 150 mls @ 100 mls/hr IV Q24H [facility] Last Admin: 03/15/17 12:44 Dose: 100 mls/hr Piperacillin Sod/Tazobactam (Sod 3.375 gm/ Sodium Chloride) 50 mls @ 100 mls/ hr IV Q6H [facility] Last Admin: 03/16/17 09:01 Dose: 100 mls/hr Insulin Human Regular (Novolin R) 0 unit SUBCUT QIDACANDBED [facility] PRN Reason: Protocol Last Admin: 03/16/17 07:20 Dose: 2 unit Metformin HCl (Glucophage Xr) 500 mg PO DAILY@0800 [facility] Methylprednisolone Sodium Succinate (Solu-Medrol) 125 mg IVPUSH Q8H [facility] Last Admin: 03/16/17 09:00 Dose: 125 mg Metoprolol Succinate (Toprol Xl) 100 mg PO DAILY [facility] Last Admin: 03/16/17 09:05 Dose: 100 mg Ondansetron HCl (Zofran Odt) 4 mg PO Q4H PRN PRN Reason: nausea, able to take PO Temazepam (Restoril) 15 mg PO BEDTIME PRN PRN Reason: Insomnia Tramadol HCl (Ultram) 50 mg PO Q8H PRN PRN Reason: Pain Discontinued Medications Albuterol (Proventil Neb Soln) 2.5 mg NEB ONETIME ONE Stop: 03/14/17 12:07 Last Admin: 03/14/17 12:13 Dose: 2.5 mg Sodium Chloride (Normal Saline) 1,000 mls @ 999 mls/hr IV STAT ONE Stop: 03/14/17 11:41 Last Admin: 03/14/17 11:10 Dose: 999 mls/hr Piperacillin Sod/Tazobactam (Sod 3.375 gm/ Sodium Chloride) 50 mls @ 100 mls/ hr IV Q8H [facility] Last Admin: 03/14/17 16:48 Dose: 100 mls/hr Sodium Chloride (Normal Saline) 1,000 mls @ 999 mls/hr IV .Bolus ONE Stop: 03/16/17 09:57 Last Admin: 03/16/17 09:26 Dose: 999 mls/hr Ketorolac Tromethamine (Toradol) 30 mg IVPUSH ONETIME ONE Stop: 03/14/17 10:44 Last Admin: 03/14/17 11:10 Dose: 30 mg Lidocaine (Xylocaine-Mpf 2%) 5 ml INJECT ONETIME ONE Stop: 03/15/17 16:23 Last Admin: 03/15/17 17:34 Dose: Not Given Methylprednisolone Sodium Succinate (Solu-Medrol) 125 mg IVPUSH Q6H [facility] Last Admin: 03/15/17 08:27 Dose: 125 mg Potassium Chloride (Klor-Con M20) 40 meq PO ONETIME ONE Stop: 03/15/17 13:34 Last Admin: 03/15/17 13:50 Dose: 40 meq - Exam Quality Assessment: Supplemental Oxygen (1.5 L via nasal cannula.), DVT Prophylaxis (Lovenox, SCDs.) General: Alert, Oriented, Cooperative, No Acute Distress HEENT: Mucous Membr. Moist/[place] Neck: Supple Lungs: Normal Respiratory Effort, Decreased Breath Sounds (Bilaterally and diffusely in all lung lemon.) Cardiovascular: Regular Rate, Regular Rhythm GI/Abdominal Exam: Normal Bowel Sounds, Soft, Non-Tender, No Organomegaly, No Distention, No Abnormal Bruit, No Mass Extremities: Normal Inspection, Normal Range of Motion, Non-Tender, No Pedal Edema, Normal Capillary Refill Peripheral Pulses: 2+: Radial (L), Radial (R), Posterior Tibial (L), Posterior Tibial (R) Skin: Warm, Dry, Intact Neurological: No New Focal Deficit Psy/Mental Status: Alert, Normal Affect, Normal Mood - Problem List & Annotations (1) Diabetes SNOMED Code(s): 80466680 Code(s): E11.9 - TYPE 2 DIABETES MELLITUS WITHOUT COMPLICATIONS Status: Chronic Current Visit: Yes Qualifiers: Diabetes mellitus type: type 2 Diabetes mellitus complication status: without complication Diabetes mellitus mcc insulin use: without mcc use Qualified Code(s): E11.9 - Type 2 diabetes mellitus without complications (2) COPD (chronic obstructive pulmonary disease) SNOMED Code(s): 35588944 Code(s): J44.9 - CHRONIC OBSTRUCTIVE PULMONARY DISEASE, UNSPECIFIED Status : Acute Current Visit: Yes Qualifiers: COPD type: COPD with acute exacerbation Qualified Code(s): J44.1 - Chronic obstructive pulmonary disease with (acute) exacerbation (3) Pneumonia SNOMED Code(s): 684573583 Code(s): J18.9 - PNEUMONIA, UNSPECIFIED ORGANISM Status: Acute Current Visit: Yes Qualifiers: Pneumonia type: due to unspecified organism Laterality: bilateral Lung location: lower lobe of lung Qualified Code(s): J18.9 - Pneumonia, unspecified organism - Problem List Review Problem List Initiated/Reviewed/Updated: Yes - My Orders Last 24 Hours: My Active Orders 03/16/17 09:00 Anastrozole [Arimidex] 1 mg PO DAILY Benzonatate [Tessalon Perles] 200 mg PO TID Colesevelam [Welchol] 1,250 mg PO BID Fluticasone Propionate [Flonase] 1 gm NASBOTH DAILY 03/17/17 05:11 BASIC METABOLIC PANEL,BMP [CHEM] AM CBC WITH AUTO DIFF [HEME] AM 03/17/17 08:00 metFORMIN [Glucophage XR] 500 mg PO DAILY@0800 - Plan Plan:: 71-year-old female that is being admitted with pneumonia and possible COPD exacerbation. #1. CAP with possible COPD exacerbation: Continue IV Levaquin 750 mg daily and Zosyn. White blood cell count was previously normal but has elevated most likely secondary to Solu-Medrol. Symptoms continuing to improve. Continue Duonebs PRN. recommended PFT as outpatient to evaluate respiratory status, once acute illness has passed. -Tessalon Perles added for cough. -Will try to wean off O2 today. #2. Type 2 diabetes: Continue SSI and check BS, may increase with Solumedrol. Have restarted the patient's metformin. #3. Hypertension: Continue home medications DVT prophylaxis: SCDs, Lovenox. Disposition: 1-2 days.
[2017-03-16] MEDS: Levofloxacin/Dextrose 5%-Water 750 MG in Premix Bag 1 BAG IV SCH (14:00)
[2017-03-17] MEDS: methylPREDNISolone Sodium Succinate 125 MG/2 ML SDV IVPUSH SCH ×2 (00:09→07:49)
[2017-03-17] MEDS: Piperacillin/Tazobactam 3.375 GM in Sodium Chloride 0.9% 50 ML IV SCH ×2 (01:51→07:49)
[2017-03-17] MEDS: Benzonatate 100 MG Cap PO SCH (05:57)
[2017-03-17 07:08] LABS: CHLORIDE,CL 104 mmol/L (98-110); SODIUM,NA 140 mmol/L (136-146)
[2017-03-17] MEDS: Insulin Regular, Human 100 Units/ML 10 ML Vial SUBCUT SCH (07:09)
[2017-03-17] MEDS ORDERED: metFORMIN 500 MG Tab.ER PO SCH (08:00)
[2017-03-17] MEDS: Colesevelam 625 MG Tab PO SCH (08:13)
[2017-03-17] MEDS: Metoprolol Succinate 100 MG Tab.ER PO SCH (08:13)
[2017-03-17] MEDS: Anastrozole 1 MG Tab PO SCH (08:13)
[2017-03-17] MEDS: Enoxaparin 40 MG/0.4 ML Syringe SUBCUT SCH (08:14)
[2017-03-17] MEDS: amLODIPine 2.5 MG Tab PO SCH (08:14)
[2017-03-17] MEDS: Hydrochlorothiazide/Losartan 12.5-50 mg Tab PO SCH (08:14)
[2017-03-17] MEDS: Fluticasone Propionate Nasal Spray 16 GM Bottle NASBOTH SCH (08:14)
--- NOTE | 2017-07-21 13:30 | PCM.DCSUM1 ---
Discharge Summary - Hospital Course Free Text/Narrative:: Admission diagnosis: #1. Community-acquired pneumonia #2. COPD exacerbation #3. Diabetes #4. Hypertension Discharge diagnoses: #1. Community-acquired pneumonia #2. COPD exacerbation, improved #3. Diabetes #4. Hypertension 71-year-old female that was admitted to the hospital with community-acquired pneumonia and a COPD exacerbation. Patient was admitted secondary to failing outpatient therapy with oral Levaquin for suspected community-acquired pneumonia. Upon admission the patient was requiring 2 L nasal cannula to maintain her oxygen saturation greater than 94%. At the time of discharge, the patient was not requiring supplemental oxygen and her respiratory status had improved. Patient was started on IV Levaquin and Zosyn along with IV Solu- Medrol and as needed duo nebs. Again, with these treatments, her respiratory status improved. Patient did have an elevated white blood cell count of 15.6 when admitted which did return to normal with the initiation of IV antibiotics. Her white blood cell count did elevate after Solu-Medrol was initiated. Chest x- ray showed bilateral atelectasis without any acute findings. BNP was unremarkable. At the time of discharge, the patient was tolerating oral intake and voiding appropriately. She was ambulating without assistance. Discharge plan: #1. Prescription given for Tessalon Perles secondary to persistent cough #2. 2 additional days of Levaquin 750 mg daily prescribed. #3. Prescription given for prednisone taper #4. Patient will resume all home medications #5. Patient will follow-up with her PCP as soon as possible following discharge. - Discharge Data Discharge Date: 03/17/17 Discharge Disposition: Home, Self-Care 01 Condition: Good - Discharge Diagnosis/Problem(s) (1) Diabetes SNOMED Code(s): 11950879 ICD Code: E11.9 - TYPE 2 DIABETES MELLITUS WITHOUT COMPLICATIONS Status: Chronic Qualifiers: Diabetes mellitus type: type 2 Diabetes mellitus intermediate insulin use: without terminal gauger use Diabetes mellitus complication status: without complication Qualified Code(s): E11.9 - Type 2 diabetes mellitus without complications (2) COPD (chronic obstructive pulmonary disease) SNOMED Code(s): 61875375 ICD Code: J44.9 - CHRONIC OBSTRUCTIVE PULMONARY DISEASE, UNSPECIFIED Status : Acute Qualifiers: COPD type: COPD with acute exacerbation Qualified Code(s): J44.1 - Chronic obstructive pulmonary disease with (acute) exacerbation (3) Pneumonia SNOMED Code(s): 330858024 ICD Code: J18.9 - PNEUMONIA, UNSPECIFIED ORGANISM Status: Acute Qualifiers: Pneumonia type: due to unspecified organism Laterality: bilateral Lung location: lower lobe of lung Qualified Code(s): J18.9 - Pneumonia, unspecified organism - Patient Instructions Diet: Diabetic Diet Activity: As Tolerated Driving: May Drive Today Showering/Bathing: May Shower Notify Provider of: Fever, Increased Pain, Nausea and/or Vomiting - Discharge Plan Prescriptions/Med Rec: Benzonatate [Tessalon Perles] 200 mg PO TID #30 cap Levofloxacin 750 mg PO DAILY #2 tablet Prednisone [IJD: Prednisone] 10 mg PO DAILY #28 tab Home Medications: Home Meds Anastrozole [Arimidex] 1 mg PO DAILY 03/14/17 [History] Budesonide/Formoterol Fumarate [Symbicort 160-4.5 Mcg Inhaler] 2 puff INH BID [History] Colesevelam HCl [Welchol] 1,250 mg PO BID 03/14/17 [History] Fluticasone Furoate [Flonase Sensimist] 1 spray NASBOTH DAILY 03/14/17 [History] Losartan/Hydrochlorothiazide [Losartan-HCTZ 100-25 MG] 1 tab PO DAILY 03/14/17 [ History] Metoprolol Succinate [Toprol XL] 100 mg PO DAILY 03/14/17 [History] amLODIPine [Norvasc] 2.5 mg PO DAILY 03/14/17 [History] metFORMIN HCl [Metformin HCl ER] 500 mg PO DAILY 03/14/17 [History] valACYclovir [Valtrex] 1,000 mg PO ASDIRECTED PRN 03/14/17 [History] guaiFENesin/Codeine Phosphate [Cheratussin AC Syrup] 10 ml PO Q4H PRN 03/15/17 [ History] Benzonatate [Tessalon Perles] 200 mg PO TID #30 cap 03/17/17 [Rx] Levofloxacin 750 mg PO DAILY #2 tablet 03/17/17 [Rx] Prednisone [IJD: Prednisone] 10 mg PO DAILY #28 tab 03/17/17 [Rx] Patient Handouts: Levofloxacin tablets, Prednisone tablets, Benzonatate capsules, Community-Acquired Pneumonia, Adult, [id number] Referrals: Terrance Younger MD [Primary Care Provider] - 03/22/17 2:45 pm - Discharge Summary/Plan Comment DC Time >30 min.: No Discharge Summary/Plan Comment: Admission diagnosis: #1. Community-acquired pneumonia #2. COPD exacerbation #3. Diabetes #4. Hypertension Discharge diagnoses: #1. Community-acquired pneumonia #2. COPD exacerbation, improved #3. Diabetes #4. Hypertension 71-year-old female that was admitted to the hospital with community-acquired pneumonia and a COPD exacerbation. Patient was admitted secondary to failing outpatient therapy with oral Levaquin for suspected community-acquired pneumonia. Upon admission the patient was requiring 2 L nasal cannula to maintain her oxygen saturation greater than 94%. At the time of discharge, the patient was not requiring supplemental oxygen and her respiratory status had improved. Patient was started on IV Levaquin and Zosyn along with IV Solu- Medrol and as needed duo nebs. Again, with these treatments, her respiratory status improved. Patient did have an elevated white blood cell count of 15.6 when admitted which did return to normal with the initiation of IV antibiotics. Her white blood cell count did elevate after Solu-Medrol was initiated. Chest x- ray showed bilateral atelectasis without any acute findings. BNP was unremarkable. At the time of discharge, the patient was tolerating oral intake and voiding appropriately. She was ambulating without assistance. Discharge plan: #1. Prescription given for Tessalon Perles secondary to persistent cough #2. 2 additional days of Levaquin 750 mg daily prescribed. #3. Prescription given for prednisone taper #4. Patient will resume all home medications #5. Patient will follow-up with her PCP as soon as possible following discharge. - Patient Data Vitals - Most Recent: Last Vital Signs Temp 96.8 F 03/17/17 08:00 Pulse 80 03/17/17 08:13 Resp 20 03/17/17 08:00 BP 156/76 H 03/17/17 08:14 Pulse Ox 94 L 03/17/17 08:00 Weight - Most Recent: 194 lb 0.108 oz Med Orders - Current: Current Medications Discontinued Medications Acetaminophen (Tylenol) 650 mg PO Q4H PRN PRN Reason: Pain (Mild 1-3)/fever Last Admin: 03/16/17 09:21 Dose: 650 mg Albuterol (Proventil Neb Soln) 2.5 mg NEB ONETIME ONE Stop: 03/14/17 12:07 Last Admin: 03/14/17 12:13 Dose: 2.5 mg Albuterol/Ipratropium (Duoneb 3.0-0.5 Mg/3 Ml) 3 ml NEB Q4HRRT PRN PRN Reason: Shortness Of Breath/wheezing Amlodipine Besylate (Norvasc) 2.5 mg PO DAILY [facility] Last Admin: 03/17/17 08:14 Dose: 2.5 mg Anastrozole (Arimidex) 1 mg PO DAILY [facility] Last Admin: 03/17/17 08:13 Dose: 1 mg Benzonatate (Tessalon Perles) 200 mg PO TID [facility] Last Admin: 03/17/17 05:57 Dose: 200 mg Colesevelam HCl (Welchol) 1,250 mg PO BID [facility] Last Admin: 03/17/17 08:13 Dose: 1,250 mg Enoxaparin Sodium (Lovenox) 40 mg SUBCUT DAILY [facility] Last Admin: 03/17/17 08:14 Dose: 40 mg Fluticasone Propionate (Flonase) 1 gm NASBOTH DAILY [facility] Last Admin: 03/17/17 08:14 Dose: 1 spray HCTZ/Losartan Potassium (Hyzaar 50-12.5 Mg) 2 tab PO DAILY [facility] Last Admin: 03/17/17 08:14 Dose: 2 tab Sodium Chloride (Normal Saline) 1,000 mls @ 999 mls/hr IV STAT ONE Stop: 03/14/17 11:41 Last Admin: 03/14/17 11:10 Dose: 999 mls/hr Levofloxacin/Dextrose 750 mg/ (Premix) 150 mls @ 100 mls/hr IV Q24H [facility] Last Admin: 03/16/17 14:00 Dose: 100 mls/hr Piperacillin Sod/Tazobactam (Sod 3.375 gm/ Sodium Chloride) 50 mls @ 100 mls/ hr IV Q8H [facility] Last Admin: 03/14/17 16:48 Dose: 100 mls/hr Piperacillin Sod/Tazobactam (Sod 3.375 gm/ Sodium Chloride) 50 mls @ 100 mls/ hr IV Q6H [facility] Last Admin: 03/17/17 07:49 Dose: 100 mls/hr Sodium Chloride (Normal Saline) 1,000 mls @ 999 mls/hr IV .Bolus ONE Stop: 03/16/17 09:57 Last Admin: 03/16/17 09:26 Dose: 999 mls/hr Insulin Human Regular (Novolin R) 0 unit SUBCUT QIDACANDBED ALEXY PRN Reason: Protocol Last Admin: 03/17/17 07:09 Dose: 2 unit Ketorolac Tromethamine (Toradol) 30 mg IVPUSH ONETIME ONE Stop: 03/14/17 10:44 Last Admin: 03/14/17 11:10 Dose: 30 mg Lidocaine (Xylocaine-Mpf 2%) 5 ml INJECT ONETIME ONE Stop: 03/15/17 16:23 Last Admin: 03/15/17 17:34 Dose: Not Given Metformin HCl (Glucophage Xr) 500 mg PO DAILY@0800 [facility] Last Admin: 03/17/17 07:49 Dose: 500 mg Methylprednisolone Sodium Succinate (Solu-Medrol) 125 mg IVPUSH Q6H [facility] Last Admin: 03/15/17 08:27 Dose: 125 mg Methylprednisolone Sodium Succinate (Solu-Medrol) 125 mg IVPUSH Q8H [facility] Last Admin: 03/17/17 07:49 Dose: 125 mg Metoprolol Succinate (Toprol Xl) 100 mg PO DAILY [facility] Last Admin: 03/17/17 08:13 Dose: 100 mg Ondansetron HCl (Zofran Odt) 4 mg PO Q4H PRN PRN Reason: nausea, able to take PO Potassium Chloride (Klor-Con M20) 40 meq PO ONETIME ONE Stop: 03/15/17 13:34 Last Admin: 03/15/17 13:50 Dose: 40 meq Temazepam (Restoril) 15 mg PO BEDTIME PRN PRN Reason: Insomnia Tramadol HCl (Ultram) 50 mg PO Q8H PRN PRN Reason: Pain *Q Meaningful Use (DIS) - VTE *Q VTE Criteria *Q: - Stroke *Q Stroke Criteria *Q: - AMI *Q AMI Criteria *Q:
== END 2017-03-17 10:50 | disposition home or self-care (01) | DRG 194 ==
LOC: MW.ED 10:22 → MW.MS 13:02
PROVIDERS: ADMIT Family Medicine; ATTEND Family Medicine
DX: J18.9 Pneumonia, unspecified organism (principal); J44.0 Chronic obstructive pulmonary disease with (acute) lower respiratory infection; J44.1 Chronic obstructive pulmonary disease with (acute) exacerbation; I10 Essential (primary) hypertension; E11.9 Type 2 diabetes mellitus without complications; Z88.2 Allergy status to sulfonamides; Z79.899 Other long term (current) drug therapy
CPT/HCPCS: 36415; 71020; 80053; 82150; 83036; 83690; 83880; 85025; 94640; 96361; 96374; 99285; J1885; J7040; 80048; 82962; 83735; 87040; 87046; 87324; 87899; 99283; A9270-GY; J1650; J1815-GY; J1956; J2543; J2930; J7050

== ENCOUNTER 2017-08-23 09:57 | Day surgery (SDC) | payer MEDICARE, BC ==
[~2017-08-23 09:57] MED LIST: Lactated Ringers 1,000 ML IV SCH; Sodium Chloride 0.9% 10 ML Syringe FLUSH PRN; Sodium Chloride 0.9% 2.5 ML Syringe FLUSH PRN
[2017-08-23] MEDS ORDERED: fentaNYL 100 MCG/2 ML SDV ONE (10:33)
[2017-08-23] MEDS ORDERED: Lidocaine 2% 5 ML SDV ONE (10:33)
[2017-08-23] MEDS ORDERED: Propofol 200 MG/20 ML SDV ONE (10:33)
--- NOTE | 2017-08-23 10:52 | PCM.PREANE ---
Preanesthetic Assessment - Anesthesia/Transfusion/Family Hx Anesthesia History: Prior Anesthesia Without Reaction Family History of Anesthesia Reaction: No Transfusion History: No Prior Transfusion(s) - Review of Systems General: No Symptoms Pulmonary: No Symptoms Cardiovascular: No Symptoms Gastrointestinal: No Symptoms Neurological: No Symptoms Other: Reports: None - Physical Assessment NPO Status Date: 08/22/17 Height: 1.75 m Weight: 82.1 kg ASA Class: 2 Mental Status: Alert & Oriented x3 Airway Class: Mallampati = 1 Dentition: Reports: Normal Dentition ROM/Head Extension: Full Lungs: Clear to Auscultation, Normal Respiratory Effort Cardiovascular: Regular Rate, Regular Rhythm - Allergies Allergies/Adverse Reactions: Allergies Allergy/AdvReac Type Severity Reaction Status Date / Time cefaclor [From Ceclor] Allergy Itching Verified 08/19/17 10:16 Sulfa (Sulfonamide Allergy Rash Verified 08/19/17 10:16 Antibiotics) - Anesthesia Plan Pre-Op Medication Ordered: None - Acknowledgements Anesthesia Type Planned: MAC Pt an Appropriate Candidate for the Planned Anesthesia: Yes Alternatives and Risks of Anesthesia Discussed w Pt/Guardian: Yes Pt/Guardian Understands and Agrees with Anesthesia Plan: Yes PreAnesthesia Questionnaire HEENT History: Reports: Cataract, Other (See Below) Other HEENT History: uses reading glasses Cardiovascular History: Reports: High Cholesterol, Hypertension Respiratory History: Reports: Sleep Apnea Other Respiratory History: does not use CPAP since weight loss last year, was told she might have COPD- no testing done, no inhaler Gastrointestinal History: Reports: Colon Polyp, Hemorrhoids [employer] History: Reports: Musculoskeletal History: Reports: Neck Pain, Chronic Neurological History: Reports: Neuropathy, Peripheral Other Neuro History: 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 Endocrine/Metabolic History: Reports: Diabetes, Type II Oncologic (Cancer) History: Reports: Basal Cell Carcinoma, Breast - Infectious Disease History Infectious Disease History: Reports: Chicken Pox, Measles, Mumps - Past Surgical History Head Surgeries/Procedures: Reports: None HEENT Surgical History: Reports: Cataract Surgery Cardiovascular Surgical History: Reports: Other (See Below) Other Cardiovascular Surgeries/Procedures: has port-a-cath GI Surgical History: Reports: Cholecystectomy, Colonoscopy, Other (See Below) Other GI Surgeries/Procedures: hemorrhoidectomy Female Surgical History: Reports: Hysterectomy, Mastectomy, Other (See Below) Other Female Surgeries/Procedures: left Modified Radical Matectomy for cancer , right Simple Mastectomy (preventitive) Neurological Surgical History: Reports: Other (See Below) Other Neurological Surgeries/Procedures: states has herniated disc in lower back Musculoskeletal Surgical History: Reports: Carpal Tunnel, Other (See Below) Other Musculoskeletal Surgeries/Procedures:: hx of right CTR, and right trigger finger release Oncologic Surgical History: Reports: Other (See Below) Other Oncologic Surgeries/Procedures: removal of mole on nose - SUBSTANCE USE Smoking Status *Q: Former Smoker Tobacco Use Within Last Twelve Months: No Second Hand Smoke Exposure: No Recreational Drug Use History: No - HOME MEDS Home Medications: Home Meds Anastrozole [Arimidex] 1 mg PO DAILY 03/14/17 [History] Colesevelam HCl [Welchol] 1,250 mg PO BID 03/14/17 [History] Losartan/Hydrochlorothiazide [Losartan-HCTZ 100-25 MG] 1 tab PO QAM 03/14/17 [ History] Metoprolol Succinate [Toprol XL] 50 mg PO QPM 03/14/17 [History] amLODIPine [Norvasc] 2.5 mg PO DAILY 03/14/17 [History] metFORMIN HCl [Metformin HCl ER] 500 mg PO DAILY 03/14/17 [History] valACYclovir [Valtrex] 1,000 mg PO ASDIRECTED PRN 03/14/17 [History] Aspirin [Adult Low Dose Aspirin EC] 81 mg PO DAILY 08/19/17 [History] Calcium Carbonate/Vitamin D3 [Caltrate 600 Plus D3 Tablet] 1 tab PO DAILY [History] Ipratropium [place] 1 spray NASBOTH Q6H PRN 08/19/17 [History] - CURRENT (IN HOUSE) MEDS Current Meds: Current Medications Lactated Ringer's (Ringers, Lactated) 1,000 mls @ 125 mls/hr IV ASDIRECTED ALEXY Sodium Chloride (Saline Flush) 10 ml FLUSH ASDIRECTED PRN PRN Reason: Keep Vein Open Sodium Chloride (Saline Flush) 2.5 ml FLUSH ASDIRECTED PRN PRN Reason: Keep Vein Open Sodium Chloride (Saline Flush) 10 ml FLUSH ASDIRECTED PRN PRN Reason: Keep Vein Open Sodium Chloride (Saline Flush) 2.5 ml FLUSH ASDIRECTED PRN PRN Reason: Keep Vein Open Discontinued Medications Fentanyl (Sublimaze) Confirm Administered Dose 100 mcg .ROUTE .STK-MED ONE Stop: 08/23/17 10:34 Lidocaine (Xylocaine-Mpf 2%) Confirm Administered Dose 5 ml .ROUTE .STK-MED ONE Stop: 08/23/17 10:34 Propofol (Diprivan 20 Ml) Confirm Administered Dose 400 mg .ROUTE .STK-MED ONE Stop: 08/23/17 10:34
[2017-08-23] MEDS ORDERED: ePHEDrine 50 MG/ML SDV ONE (12:54)
--- NOTE | 2017-08-23 13:03 | PCM.OPNOTE ---
- General Post-Op/Procedure Note Date of Surgery/Procedure: 08/23/17 Operative Procedure(s): Screening colonoscopy Findings: Sigmoid colon polyp, diverticulosis Pre Op Diagnosis: Hisotry of colon polyps Post-Op Diagnosis: Sigmoid colon polyp, diverticulosis Anesthesia Technique: EVANGELISTA Primary Surgeon: Phoebe Grossman Condition: Good
--- NOTE | 2017-08-23 13:23 | PCM.POSTAN ---
POST ANESTHESIA ASSESSMENT - MENTAL STATUS Mental Status: Alert, Oriented - RESPIRATORY Respiratory Status: Respiratory Rate WNL, Airway Patent, O2 Saturation Stable - CARDIOVASCULAR CV Status: Pulse Rate WNL, Blood Pressure Stable - GASTROINTESTINAL GI Status: No Symptoms - PAIN Pain Score: 0 - POST OP HYDRATION Hydration Status: Adequate & Stable
--- NOTE | 2017-08-23 13:49 | PCM48HPAN ---
Post Anesthesia Note - EVALUATION WITHIN 48HRS OF ANESTHETIC Vital Signs in Normal Range: Yes Patient Participated in Evaluation: Yes Respiratory Function Stable: Yes Airway Patent: Yes Cardiovascular Function Stable: Yes Hydration Status Stable: Yes Pain Control Satisfactory: Yes Nausea and Vomiting Control Satisfactory: Yes Mental Status Recovered: Yes Resp Rate: 11
--- NOTE | 2017-08-23 22:09 | OR ---
SURGEON: PARVEZ BARRERA MD DATE OF PROCEDURE: 08/23/2017 PREOPERATIVE DIAGNOSIS: History of colon polyps. POSTOPERATIVE DIAGNOSES: 1. Grade 4 hemorrhoids. 2. Diverticulosis. 3. Sigmoid colon polyp at 60 cm. PROCEDURE PERFORMED: Diagnostic colonoscopy. ANESTHESIA: MAC. INSTRUMENT USED: Olympus colonoscope. EXTENT OF EXAM: To the cecum. PREPARATION: Good. LIMITATIONS: None. INDICATIONS FOR EXAMINATION: The patient is a 71-year-old female with a past medical history of colon polyps. She was supposed to have a repeat colonoscopy in 5 years, however, has not had one for approximately 10 years. The patient and I discussed the need for a repeat colonoscopy. We discussed the procedure, expected perioperative course, and risks including bleeding, infection, or damage to surrounding structures including perforation. The patient verbalized understanding and wishes to proceed. PROCEDURE IN DETAIL: The patient was brought into the endoscopy suite and placed in the left lateral decubitus position. A time-out was completed verifying the patient's name, age, date of , allergies, and procedure to be performed. Monitored anesthesia care was induced and continuous oxygen was provided via nasal cannula throughout the procedure. After adequate sedation was achieved, a digital rectal exam was performed. The patient was found to have grade 4 prolapsed hemorrhoids. A well lubricated colonoscope was then inserted in the rectum and advanced under direct visualization at the level of the cecum. The cecum was identified by both visual and anatomic landmarks. A photograph was taken of the cecal cap as well as with the scope retroflexed within the cecum. The scope was then fully withdrawn while examining the color, texture, anatomy, and integrity of the mucosa from the cecum to the anal canal. The patient was found to have diverticulosis throughout the sigmoid colon. The patient was found to have a pedunculated sigmoid colon polyp at 60 cm. This was removed using a cold snare. The area was hemostatic after removal. The remainder of the colon appeared normal. The scope was then brought into the rectum and retroflexed to allow visualization of the anal canal opening. This appeared normal and a photograph was taken. The scope was then straightened out and fully withdrawn. The cecum to anus time was 9 minutes. The patient tolerated the procedure well and transferred to the PACU in stable condition. ENDOSCOPIC DIAGNOSES: 1. Grade 4 hemorrhoids. 2. Diverticulosis. 3. Sigmoid colon polyp. RECOMMENDATION: Follow up in clinic in 2 weeks. CARLENE / MODL /[id number]
== END 2017-08-23 14:10 | disposition home or self-care (01) ==
LOC: MW.SDS 09:57
PROVIDERS: ATTEND Surgery
DX: Z12.11 Encounter for screening for malignant neoplasm of colon (principal); D12.5 Benign neoplasm of sigmoid colon; K64.3 Fourth degree hemorrhoids; K57.30 Diverticulosis of large intestine without perforation or abscess without bleeding; I10 Essential (primary) hypertension; G47.33 Obstructive sleep apnea (adult) (pediatric); J44.9 Chronic obstructive pulmonary disease, unspecified; E78.00 Pure hypercholesterolemia, unspecified; E11.42 Type 2 diabetes mellitus with diabetic polyneuropathy; Z87.891 Personal history of nicotine dependence; Z86.010 Personal history of colon polyps; Z85.3 Personal history of malignant neoplasm of breast; Z79.811 Long term (current) use of aromatase inhibitors; Z79.82 Long term (current) use of aspirin; Z79.84 Long term (current) use of oral hypoglycemic drugs; Z79.899 Other long term (current) drug therapy; Z88.2 Allergy status to sulfonamides; Z88.1 Allergy status to other antibiotic agents
CPT/HCPCS: 00811; 82962; 88305; J2704; J3010; J7120

== ENCOUNTER 2018-09-07 06:19 | Day surgery (SDC) | payer MEDICARE, BC ==
[~2018-09-07 06:19] MED LIST changes: +Clindamycin Phosphate in D5W 600 MG in Premix Bag 1 BAG IV ONE; +Sodium Chloride 0.9% 10 ML SDV IV PRN
[2018-09-07] MEDS ORDERED: Midazolam 1 MG/ML 2 ML SDV ONE (06:55)
[2018-09-07] MEDS ORDERED: Propofol 200 MG/20 ML SDV ONE (06:55)
[2018-09-07] MEDS ORDERED: fentaNYL 100 MCG/2 ML SDV ONE (06:55)
[2018-09-07] MEDS ORDERED: Clindamycin Phosphate in D5W 50 ML ONE (06:57)
--- NOTE | 2018-09-07 07:11 | PCM.PREANE ---
Preanesthetic Assessment - Anesthesia/Transfusion/Family Hx Anesthesia History: Prior Anesthesia Without Reaction Family History of Anesthesia Reaction: No Transfusion History: No Prior Transfusion(s) Intubation History: Unknown - Review of Systems General: No Symptoms Pulmonary: No Symptoms Cardiovascular: No Symptoms Gastrointestinal: No Symptoms Neurological: No Symptoms Other: Reports: None - Physical Assessment O2 Sat by Pulse Oximetry: 94 Respiratory Rate: 16 Vital Signs: Last Vital Signs Temp 36.4 C 09/07/18 07:00 Pulse 61 09/07/18 07:00 Resp 16 09/07/18 07:00 BP 133/66 09/07/18 07:00 Pulse Ox 94 L 09/07/18 07:00 Height: 1.75 m Weight: 90.265 kg ASA Class: 3 Mental Status: Alert & Oriented x3 Airway Class: Mallampati = 2 Dentition: Reports: Normal Dentition Thyro-Mental Finger Breadths: 3 Mouth Opening Finger Breadths: 3 ROM/Head Extension: Limited/Partial Lungs: Clear to Auscultation, Normal Respiratory Effort Cardiovascular: Regular Rate, Regular Rhythm - Allergies Allergies/Adverse Reactions: Allergies Allergy/AdvReac Type Severity Reaction Status Date / Time cefaclor [From Ceclor] Allergy Itching Verified 09/04/18 08:26 Sulfa (Sulfonamide Allergy Rash Verified 09/04/18 08:26 Antibiotics) - Blood Blood Available: No - Anesthesia Plan Pre-Op Medication Ordered: None - Acknowledgements Anesthesia Type Planned: MAC Pt an Appropriate Candidate for the Planned Anesthesia: Yes Alternatives and Risks of Anesthesia Discussed w Pt/Guardian: Yes Pt/Guardian Understands and Agrees with Anesthesia Plan: Yes PreAnesthesia Questionnaire HEENT History: Reports: Other (See Below) Other HEENT History: uses reading glasses Cardiovascular History: Reports: High Cholesterol, Hypertension, Other (See Below) (left carotid stenosis 70 percent, passed stress test a month ago. 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 cancer work-up) Hematologic History: Reports: None Immunologic History: Reports: None Oncologic (Cancer) History: Reports: Basal Cell Carcinoma, Breast Dermatologic History: Reports: None - Infectious Disease History Infectious Disease History: Reports: Chicken Pox, Measles, Mumps - Past Surgical History Head Surgeries/Procedures: Reports: None HEENT Surgical History: Reports: Cataract Surgery Cardiovascular Surgical History: Reports: Other (See Below) Other Cardiovascular Surgeries/Procedures: has port-a-cath Respiratory Surgical History: Reports: None GI Surgical History: Reports: Cholecystectomy, Colonoscopy, Other (See Below) Other GI Surgeries/Procedures: hemorrhoidectomy Female Surgical History: Reports: Hysterectomy, Mastectomy, Other (See Below) Other Female Surgeries/Procedures: left Modified Radical Matectomy for cancer , right Simple Mastectomy (preventitive) Endocrine Surgical History: Reports: None Neurological Surgical History: Reports: None, Other (See Below) Musculoskeletal Surgical History: Reports: Carpal Tunnel, Other (See Below) Other Musculoskeletal Surgeries/Procedures:: hx of right CTR, and right trigger finger release Oncologic Surgical History: Reports: Mastectomy Other Oncologic Surgeries/Procedures: Bilateral masectomy, modified radical on left side Dermatological Surgical History: Reports: Skin Biopsy - SUBSTANCE USE Smoking Status *Q: Former Smoker Tobacco Use Within Last Twelve Months: No Recreational Drug Use History: No - HOME MEDS Home Medications: Home Meds Anastrozole [Arimidex] 1 mg PO DAILY 03/14/17 [History] Colesevelam HCl [Welchol] 1,250 mg PO BID 03/14/17 [History] Losartan/Hydrochlorothiazide [Losartan-HCTZ 100-25 MG] 1 tab PO QAM 03/14/17 [ History] Metoprolol Succinate [Toprol XL] 100 mg PO BEDTIME 03/14/17 [History] amLODIPine [Norvasc] 5 mg PO BID 03/14/17 [History] metFORMIN HCl [Metformin HCl ER] 500 mg PO DAILY 03/14/17 [History] valACYclovir [Valtrex] 1,000 mg PO ASDIRECTED PRN 03/14/17 [History] Aspirin [Adult Low Dose Aspirin EC] 81 mg PO DAILY 08/19/17 [History] Calcium Carbonate/Vitamin D3 [Caltrate 600 Plus D3 Tablet] 1 tab PO DAILY [History] Ipratropium [place] 1 spray NASBOTH Q6H PRN 08/19/17 [History] Albuterol Sulfate [Proair Hfa] 1 - 2 puff INH ASDIRECTED PRN 09/04/18 [History] - CURRENT (IN HOUSE) MEDS Current Meds: Current Medications Lactated Ringer's (Ringers, Lactated) 1,000 mls @ 125 mls/hr IV ASDIRECTED ALEXY Last Admin: 09/07/18 07:00 Dose: 125 mls/hr Sodium Chloride (Saline Flush) 10 ml FLUSH ASDIRECTED PRN PRN Reason: Keep Vein Open Sodium Chloride (Saline Flush) 2.5 ml FLUSH ASDIRECTED PRN PRN Reason: Keep Vein Open Sodium Chloride (Normal Saline) 10 ml IV ASDIRECTED PRN PRN Reason: IV Use Discontinued Medications Fentanyl (Sublimaze) Confirm Administered Dose 100 mcg .ROUTE .STK-MED ONE Stop: 09/07/18 06:56 Clindamycin Phosphate 600 mg/ (Premix) 50 mls @ 100 mls/hr IV ONETIME ONE Stop: 09/06/18 13:39 Lidocaine HCl (Xylocaine-Mpf 1%) Confirm Administered Dose 5 mls @ as directed .ROUTE .STK-MED ONE Stop: 09/07/18 06:57 Clindamycin Phosphate (Cleocin In D5w) Confirm Administered Dose 50 mls @ as directed .ROUTE .STK-MED ONE Stop: 09/07/18 06:58 Midazolam HCl (Versed 1 Mg/Ml) Confirm Administered Dose 2 mg .ROUTE .STK-MED ONE Stop: 09/07/18 06:56 Propofol (Diprivan 20 Ml) Confirm Administered Dose 200 mg .ROUTE .STK-MED ONE Stop: 09/07/18 06:56
[2018-09-07] MEDS ORDERED: Bupivacaine 0.5% 10 ML SDV ONE (07:14)
[2018-09-07] MEDS ORDERED: Lidocaine 1% 20 ML MDV ONE (07:16)
--- NOTE | 2018-09-07 08:32 | PCM.OPNOTE ---
<Jeremias Linton - Last Filed: 09/07/18 08:28> - General Post-Op/Procedure Note Date of Surgery/Procedure: 09/07/18 Operative Procedure(s): Port-a-cath Removal Pre Op Diagnosis: Port-a-Cath removal Post-Op Diagnosis: Intact Portacath with Clot in tubing removal Primary Surgeon: Phoebe Grossman Secondary Surgeon: Jeremias Linton Pathology: intact port-a-cath with clot in tubing removed Fluid Replacement, Intraop: 500 EBL in mLs: 3 Complications: None Condition: Good <Phoebe Grossman - Last Filed: 09/07/18 08:34> - General Post-Op/Procedure Note Findings: Intact port a cath with clot in >50% of the tubing Pre Op Diagnosis: Port a cath in place Post-Op Diagnosis: Port a cath in place Anesthesia Technique: MAC EBL in mLs: 2 Free Text/Narrative:: Intake & Output 09/06/18 09/07/18 09/07/18 22:59 06:59 14:59 Intake Total 500 Balance 500
--- NOTE | 2018-09-07 14:58 | OR ---
SURGEON: PHOEBE GROSSMAN MD DATE OF PROCEDURE: 09/07/2018 PREOPERATIVE DIAGNOSIS: Breast cancer. POSTOPERATIVE DIAGNOSIS: Breast cancer. PROCEDURE PERFORMED: Removal of right subclavian Port-A-Cath. PRIMARY SURGEON: Phoebe Grossman MD. MANAGED CARE MANAGER: materials assistant: Dr. Linton, Ordnance Engineer. FLUIDS: 500 mL of crystalloid. ESTIMATED BLOOD LOSS: 2 mL. FINDINGS: Intact Port-A-Cath device with clot in half of the tubing. COMPLICATIONS: None. INDICATIONS: The patient is a 72-year-old female who has a past medical history significant for breast cancer. She is now in remission and desires to have her Port-A-Cath removed. I explained the procedure, expected perioperative course, and risks including bleeding, infection, or damage to surrounding structures. The patient verbalized understanding and wishes to proceed. PROCEDURE IN DETAIL: The patient was brought into the OR and placed on the OR table in supine position. A time-out was completed verifying the patient's name, age, date of , allergies, and procedure to be performed. Monitored anesthesia care was induced and continuous oxygen was provided via nasal cannula throughout the procedure. The right upper chest was prepped and draped in usual standard fashion. I anesthetized over the Port-A-Cath device with 0.5% Marcaine plain. A 15 blade was used to make an incision over her previous scar. Electrocautery was used to dissect down to the level of the port itself. I opened up the scar capsule with electrocautery. I then dissected out the port from the surrounding scar tissue. Gentle pressure was then applied to the tubing and it came out without difficulty. On inspection of the Port-A-Cath device, the catheter tubing was clotted about half of the length of the tubing. It was then sent to Pathology. I inspected the operative field and it was hemostatic. The wound was then closed with interrupted 3-0 Vicryl in the subcutaneous fat layer and the skin was closed with a running 4-0 Monocryl stitch. Steri-Strips and sterile dressings were applied. The patient tolerated the procedure well and was taken to PACU in stable condition. CARLENE / KIKE /[id number]
== END 2018-09-07 10:45 | disposition home or self-care (01) ==
LOC: MW.SDS 06:19
PROVIDERS: ATTEND Surgery
DX: Z45.2 Encounter for adjustment and management of vascular access device (principal); C50.919 Malignant neoplasm of unspecified site of unspecified female breast; E11.9 Type 2 diabetes mellitus without complications; I10 Essential (primary) hypertension; J44.9 Chronic obstructive pulmonary disease, unspecified; G47.30 Sleep apnea, unspecified; Z87.891 Personal history of nicotine dependence; Z79.811 Long term (current) use of aromatase inhibitors; Z79.51 Long term (current) use of inhaled steroids; Z79.82 Long term (current) use of aspirin; Z79.899 Other long term (current) drug therapy; Z79.84 Long term (current) use of oral hypoglycemic drugs; Z88.1 Allergy status to other antibiotic agents; Z88.2 Allergy status to sulfonamides; Z99.89 Dependence on other enabling machines and devices
CPT/HCPCS: 36590; 82962; 88300; A4217; J0131; J2001; J2250; J2704; J3010; J3490; J7120; 00400

== ENCOUNTER 2021-07-20 19:58 | Emergency (ER) | payer MEDICARE, BC ==
[2021-07-20] MEDS ORDERED: Diphtheria,Pertussis(Acell),Tetanus Vaccine 0.5 ML Syringe IM ONE (21:19)
[2021-07-20] MEDS ORDERED: Amoxicillin/Clavulanate K 875-125 MG Tab PO STA (21:29)
[2021-07-20 21:36] LABS: POTASSIUM,K 3.3 mmol/L (3.5-5.1)
[2021-07-20] MEDS ORDERED: Aspirin 81 MG Tab.Chew PO ONE (21:55)
[2021-07-20] MEDS ORDERED: Lactated Ringers 1,000 ML IV STA (21:57)
[2021-07-20] MEDS ORDERED: Lidocaine 1% 5 ML VIAL INJECT ONE (21:58)
[2021-07-20] MEDS ORDERED: Lactated Ringers 1,000 ML IV SCH (22:00)
[2021-07-20] MEDS ORDERED: Magnesium Sulfate/Water 2 GM in Premix Bag 1 BAG IV ONE (22:13)
[2021-07-20] MEDS ORDERED: Heparin Sodium 5,000 Units/ML Vial IVPUSH STA (22:18)
[2021-07-20] MEDS ORDERED: Heparin Sodium/0.45% NaCl 500 ML IV SCH (22:30)
[2021-07-20] MEDS ORDERED: amLODIPine 5 MG Tab PO ONE (22:53)
[2021-07-20] MEDS ORDERED: Metoprolol Succinate 100 MG Tab.ER PO ONE (22:53)
[2021-07-20] MEDS ORDERED: fentaNYL 50 MCG/ML SDV IVPUSH ONE (23:07)
== END 2021-07-20 23:45 ==
LOC: MW.ED 19:58
DX: S02.31XA Fracture of orbital floor, right side, initial encounter for closed fracture (principal); S01.111A Laceration without foreign body of right eyelid and periocular area, initial encounter; R04.0 Epistaxis; I21.4 Non-ST elevation (NSTEMI) myocardial infarction; E83.42 Hypomagnesemia; J44.9 Chronic obstructive pulmonary disease, unspecified; E78.00 Pure hypercholesterolemia, unspecified; I10 Essential (primary) hypertension; E11.9 Type 2 diabetes mellitus without complications; Z88.2 Allergy status to sulfonamides; Z88.1 Allergy status to other antibiotic agents; Z79.899 Other long term (current) drug therapy; Z20.822 Contact with and (suspected) exposure to COVID-19; W01.0XXA Fall on same level from slipping, tripping and stumbling without subsequent striking against object, initial encounter
CPT/HCPCS: 12011; 36415; 70450; 70486; 71045; 72125; 72170; 80053; 83735; 84484; 85025; 85610; 85730; 86850; 86900; 86901; 90471; 90715; 93005; 96365; 96368; 96375; 99291; 99292; A9270; J1644; J3010; J3475; J7120; U0002

== ENCOUNTER 2022-11-29 09:43 | Observation (INO) | payer MEDICARE, BC ==
[2022-11-29 10:14] LABS: BASOPHILS PERCENT AUTO 0.4 % (0.0-1.5); EOSINOPHILS ABSOLUTE AUTO 0.1 K/uL (0.0-0.7); EOSINOPHILS PERCENT AUTO 1.8 % (0.0-7.0); HEMATOCRIT 41.5 % (36.0-46.0); LYMPHOCYTES ABSOLUTE AUTO 2.1 K/uL (0.6-2.4); LYMPHOCYTES PERCENT AUTO 27.9 % (16.0-40.0); MEAN CORPUSCULAR HGB CONC 33.7 g/dL (31.0-37.0); MEAN CORPUSCULAR VOLUME 85.9 fL (80.0-98.0); MONOCYTES ABSOLUTE AUTO 0.6 K/uL (0.0-0.8); MONOCYTES PERCENT AUTO 7.9 % (0.0-15.0); NEUTROPHILS ABSOLUTE AUTO 4.7 K/uL (1.4-5.7); NRBC ABSOLUTE 0 K/uL; PLATELET COUNT,PLT 175 K/uL (150-400); RED BLOOD CELL COUNT 4.83 M/uL (4.30-5.90); WHITE BLOOD CELL COUNT,WBC 7.59 K/uL (4.0-11.0)
[2022-11-29 10:18] LABS: INR 1.02 (0.86-1.11); PTT,PARTIAL THROMBOPLSTIN TIME 25.5 SEC (23.9-30.7)
[2022-11-29] MEDS ORDERED: Acetaminophen 500 MG Tab PO ONE (10:20)
[2022-11-29] MEDS ORDERED: Meclizine 25 MG Tab PO ONE (10:20)
[2022-11-29] MEDS ORDERED: Losartan 50 MG Tab PO ONE (10:25)
[2022-11-29] MEDS ORDERED: amLODIPine 5 MG Tab PO ONE (10:25)
[2022-11-29 10:53] LABS: A/G RATIO 1.2 (0.9-1.6); BILIRUBIN TOTAL 0.5 mg/dL (0.2-1.0); CALCIUM 9.9 mg/dL (8.5-10.1); CARBON DIOXIDE,CO2 26.2 mmol/L (21.0-32.0); EST CRCL DRUG DOSING (CG) 48.45 mL/min; MAGNESIUM 1.7 mg/dL (1.8-2.4); POTASSIUM,K 4.1 mmol/L (3.5-5.1); PROTEIN TOTAL,TP 7.4 g/dL (6.4-8.2); TSH ULTRASENSITIVE 1.8 uIU/mL (0.36-3.74)
[2022-11-29 12:48] LABS: BILIRUBIN,URINE NEGATIVE (NEGATIVE); COLOR,URINE YELLOW; GLUCOSE,URINE NEGATIVE (NEGATIVE); KETONES,URINE NEGATIVE (NEGATIVE); LEUKOCYTE ESTERASE,URINE TRACE (NEGATIVE); NITRITE,URINE POSITIVE (NEGATIVE); OCCULT BLOOD,URINE NEGATIVE (NEGATIVE); PROTEIN,URINE NEGATIVE (NEGATIVE); UROBILINOGEN,URINE 0.2 EU/dL (<2.0)
[2022-11-29 13:08] LABS: APPEARANCE,URINE HAZY
[2022-11-29 13:09] LABS: BACTERIA,URINE 1+ (NEGATIVE); EPITHELIAL CELLS,URINE FEW (NONE-FEW); RBC,URINE 0-1 (0-2/HPF)
[2022-11-29] MEDS ORDERED: Sulfamethoxazole/Trimethoprim 800-160 MG Tab PO ONE (13:14)
[2022-11-29] MEDS ORDERED: Ciprofloxacin in D5W 400 MG in Premix Bag 1 BAG IV STA ×2 (13:33)
[2022-11-29] MEDS ORDERED: Sodium Chloride 0.9% 10 ML Syringe FLUSH PRN (13:37)
[2022-11-29] MEDS ORDERED: Docusate Sodium 100 MG Cap PO PRN (13:37)
[2022-11-29] MEDS ORDERED: Ondansetron 4 MG/2 ML SDV IVPUSH PRN (13:37)
[2022-11-29] MEDS ORDERED: Acetaminophen 325 MG Tab PO PRN (13:37)
[2022-11-29] MEDS ORDERED: Sodium Chloride 0.9% 2.5 ML Syringe FLUSH PRN (13:37)
[2022-11-29] MEDS ORDERED: 50% Dextrose in Water 50 ML Syringe IVPUSH PRN (13:45)
[2022-11-29] MEDS ORDERED: Glucagon,Human Recombinant 1 MG Vial IM PRN (13:45)
[2022-11-29] MEDS ORDERED: Gadobenate Dimeglumine 529 MG/ML 20 ML SDV IVPUSH STA (15:41)
[2022-11-29] MEDS ORDERED: Iopamidol 755 MG/ML 500 ML Multipack Bottle IVPUSH STA (15:55)
[2022-11-29] MEDS ORDERED: Sodium Chloride 0.9% 1,000 ML IV SCH (16:00)
[2022-11-29] MEDS: Insulin Aspart 100 Units/ML 3 ML Pen SUBCUT SCH (17:10)
[2022-11-29] MEDS: COLESEVELAM PO SCH (20:40)
[2022-11-29] MEDS ORDERED: Metoprolol Succinate 50 MG Tab.ER PO SCH (21:00)
[2022-11-30] MEDS ORDERED: Ciprofloxacin 500 MG Tab PO SCH (05:00)
[2022-11-30] MEDS: Insulin Aspart 100 Units/ML 3 ML Pen SUBCUT SCH ×2 (07:13→13:03)
[2022-11-30] MEDS ORDERED: Clopidogrel 75 MG Tab PO SCH (09:00)
[2022-11-30] MEDS ORDERED: Aspirin 81 MG Tab.EC PO SCH (09:00)
[2022-11-30] MEDS ORDERED: Losartan 50 MG Tab PO SCH (09:00)
[2022-11-30] MEDS: COLESEVELAM PO SCH (09:01)
== END 2022-11-30 12:37 | disposition home or self-care (01) ==
LOC: MW.ED 09:43 → MW.MS 13:23
PROVIDERS: ADMIT Internal Medicine; ATTEND Internal Medicine
DX: R42 Dizziness and giddiness (principal); E86.0 Dehydration; N39.0 Urinary tract infection, site not specified; I73.9 Peripheral vascular disease, unspecified; I10 Essential (primary) hypertension; E11.42 Type 2 diabetes mellitus with diabetic polyneuropathy; J44.9 Chronic obstructive pulmonary disease, unspecified; I65.23 Occlusion and stenosis of bilateral carotid arteries; E78.00 Pure hypercholesterolemia, unspecified; Z79.84 Long term (current) use of oral hypoglycemic drugs; Z79.899 Other long term (current) drug therapy; Z79.82 Long term (current) use of aspirin; Z88.2 Allergy status to sulfonamides; Z88.1 Allergy status to other antibiotic agents; Z98.890 Other specified postprocedural states
CPT/HCPCS: 36415; 70450; 70496; 70498; 70553; 80053; 80061; 81001; 82947; 83735; 83880; 84443; 84484; 85025; 85610; 85730; 87086; 93005; 96365; 97162; 99285; A9270; A9577; J0744; J7030; Q9967; 87088; 87186; 93010; 96361; G0378

== ENCOUNTER 2022-12-09 07:23 | Day surgery (SDC) | payer MEDICARE, BC ==
[~2022-12-09 07:23] MED LIST changes: -Clindamycin Phosphate in D5W 600 MG in Premix Bag 1 BAG IV ONE; -Sodium Chloride 0.9% 10 ML SDV IV PRN; +Sodium Chloride 0.9% 20 ML SDV IV PRN
[2022-12-09] MEDS ORDERED: Propofol 200 MG/20 ML SDV ONE (07:31)
== END 2022-12-09 10:15 | disposition home or self-care (01) ==
LOC: MW.SDS 07:23
PROVIDERS: ATTEND Surgery
DX: Z12.11 Encounter for screening for malignant neoplasm of colon (principal); K57.30 Diverticulosis of large intestine without perforation or abscess without bleeding; K64.8 Other hemorrhoids; K64.4 Residual hemorrhoidal skin tags; I10 Essential (primary) hypertension; E78.00 Pure hypercholesterolemia, unspecified; G47.33 Obstructive sleep apnea (adult) (pediatric); E11.42 Type 2 diabetes mellitus with diabetic polyneuropathy; J44.9 Chronic obstructive pulmonary disease, unspecified; Z88.2 Allergy status to sulfonamides; Z86.010 Personal history of colon polyps; Z88.1 Allergy status to other antibiotic agents; Z79.899 Other long term (current) drug therapy; Z79.82 Long term (current) use of aspirin; Z98.890 Other specified postprocedural states; Z87.891 Personal history of nicotine dependence; Z79.84 Long term (current) use of oral hypoglycemic drugs
CPT/HCPCS: G0105; J2704; J7120